=== PATIENT | male | born 1965 | race Caucasian/White ===

== ENCOUNTER 2018-02-26 16:00 | Observation (INO) ==
[2018-02-26] MEDS ORDERED: SALINE FLUSH 10ml SYRINGE IVF PRN (16:06)
[2018-02-26] MEDS ORDERED: NS 1,000 ML IV ONE ×2 (16:06→17:37)
--- NOTE | 2018-02-26 16:14 | Emergency Department Report ---
Overdose HPI - General Stated Complaint: SYNCOPAL EPISODE,ETOH INTOXICATION Source: patient, EMS, RN notes reviewed, old records reviewed Mode of arrival: EMS Limitations: altered mental status - History of Present Illness HPI Narrative: 53yo man presented to the ER for evaluation of overdose. Pt told EMS that he took 80mg zyprexa and "some alcohol" today prior to heading to [facility] to check in for rehab. Pt is prescribed zyprexa, but does not take this much generally. Unclear how much he normally drinks or how much he drank today. En route to [facility], pt passed out in the car that his friends were driving. The friends called EMS; pt was transported to the ER for further evaluation. MD complaint: other (Unknown intent) Onset (ago): hour(s) Intent: unwilling to say How Overdose Was Discovered: family/friend present at time Context: Intentional Overdose: relationship problems, financial issues, drug/ ETOH problems Associated symptoms: depression Treatments Prior to Arrival: IV fluids - Related Data Home Medications Medication Instructions Recorded Confirmed No known Home medications [No home 02/26/18 02/26/18 meds] Allergies Allergy/AdvReac Type Severity Reaction Status Date / Time No Known Allergies Allergy Verified 02/26/18 16:15 Review of Systems Limitations: ROS unobtainable due to patient's medical condition PENDING SALE TO [facility] Patient Stated Medical History Bipolar Disorder Yes Physical Exam - Limitations Limitations: altered mental status - General General appearance: in no apparent distress, lethargic, obese - Head Head exam: atraumatic, normocephalic, normal inspection - Eye Eye exam: Present: normal appearance, PERRL, EOMI, miosis. Absent: scleral icterus - ENT ENT exam: Present: normal exam, normal oropharynx, mucous membranes moist, normal external ear exam - Neck Neck exam: Present: normal inspection, full ROM, trachea midline. Absent: tenderness, lymphadenopathy - Chest Chest inspection: Present: normal inspection, symmetric chest wall rise. Absent : tenderness, rash - Respiratory Respiratory exam: Present: normal lung sounds bilaterally. Absent: respiratory distress, wheezes, stridor, prolonged expiratory phase, crackles - Cardiovascular Cardiovascular exam: Present: regular rate, normal rhythm, normal heart sounds. Absent: rubs, gallop, clicks - Abdominal Exam Abdominal exam: Present: soft, normal bowel sounds. Absent: distention, tenderness, guarding, rebound, rigidity - Extremities Exam Extremities exam: Present: normal inspection, full ROM, normal capillary refill. Absent: tenderness, pedal edema - Skin Skin exam: Present: warm, dry, intact. Absent: rash - Expanded Neurological Exam Coma scale eye opening: to voice Coma scale motor response: localizes to pain Coma scale verbal response: confused Coma scale total: 12 - Psychiatric Psychiatric exam: Present: flat affect Course - Consultations Consultation #1: Hospitalist: Time: 17:30 Vital Signs Temperature 97.8 F 02/26/18 16:00 Pulse Rate 94 02/26/18 16:00 Respiratory Rate 14 02/26/18 16:00 Blood Pressure 139/77 02/26/18 16:00 Pulse Oximetry 94 02/26/18 16:00 Temperature 97.8 F 02/26/18 16:00 Pulse Rate 78 02/26/18 17:30 Respiratory Rate 14 02/26/18 16:00 Blood Pressure 108/56 02/26/18 17:30 Pulse Oximetry 99 02/26/18 17:30 Overdose - MDM Narrative Medical decision making narrative: Pt still somnolent, presumably due to zyprexa and EtOH overdose of uncertain intent. Have not been able to obtain UA/UDS 2/2 pt combativeness and pt crush in the ER. Discussed obs admission with hospitalist; will admit to CCU for overnight obs and further dispo in the AM. Pt has been stable throughout ER stay , but requiring supplemental O2 to maintain SaO2. - Differential Diagnosis Likely: suicide attempt by multiple drug overdose, poisoning by opiate or related narcotic, drug overdose, accidental drug ingestion - Medical Records Attestation: I reviewed the patient's medical records. - Lab Data Attestation: I reviewed the patient's lab results. Result diagrams: 02/26/18 16:36 02/26/18 16:36 Lab Results 02/26/18 02/26/18 Range/Units 16:36 16:36 WBC 6.5 (4.5-11.0) T/MM3 RBC 4.45 L (4.50-5.90) M/MM3 Hgb 15.5 (13.5-17.5) GM/DL Hct 45.4 (41-53) % MCV 102.0 H (80-100) UM3 MCH 34.8 H (26-34) UUG MCHC 34.1 (31-37) GM/DL RDW Std Deviation 53.7 H (36.9-50.2) FL Plt Count 318 (130-400) T/MM3 MPV 10.7 (9.4-12.4) UM3 Immature Gran % (Auto) 0.6 H (0.0-0.5) % Neut % (Auto) 46.4 (33-66) % Lymph % (Auto) 45.7 H (23-45) % [place] % (Auto) 4.8 (0-9.0) % Eos % (Auto) 0.6 (0-4) % Baso % (Auto) 1.9 (0-2) % Neut # (Auto) 3.0 (1.8-7.7) T/MM3 Lymph # (Auto) 3.0 (1-4.8) T/MM3 [place] # (Auto) 0.3 (0-0.8) T/MM3 Eos # (Auto) 0.0 (0-0.5) T/MM3 Baso # (Auto) 0.1 (0-0.2) T/MM3 Abs Immat Gran (auto) 0.04 H (0.00-0.03) T/MM3 Turbidity < 20 (0-20) Sodium 155 H (134-144) MEQ/L Potassium 3.9 (3.6-5) MEQ/L Chloride 113 H (98-107) MEQ/L Carbon Dioxide 25 (22-30) MEQ/L Anion Gap 17 H (5-15) meq/L BUN 13.0 (9-20) MG/DL Creatinine 0.7 L (0.8-1.5) mg/dL GFR Calculation 119 BUN/Creatinine Ratio 19 (6-26) RATIO Glucose 81 (75-110) MG/DL Calculated Osmolality 296 H (261-280) MOSM/KG Calcium 8.6 (8.4-10.2) MG/DL Total Bilirubin 0.20 (0.20-1.30) MG/DL Icterus Index < 2 (0-7) AST 65 H (17-59) U/L ALT 81 H (1-50) U/L Alkaline Phosphatase 65 (38-126) U/L Total Protein 7.3 (6.3-8.2) g/dL Albumin 4.5 (3.5-5.0) g/dL Globulin 2.8 (2.4-3.6) G/DL Albumin/Globulin Ratio 1.6 (1.1-2.2) RATIO TSH 3.21 (0.47-4.68) mIU/L Specimen Hemolysis < 15 (0-25) Salicylates < 1.0 L (2-20) MG/DL Acetaminophen < 10 L (10-30) UG/ML Alcohol, Quantitative 350 (<10) mg/dL - Radiology Data Attestation: I reviewed the patient's radiology results. CXR: IMPRESSION: No acute cardiopulmonary abnormalities demonstrated. - EKG Data EKG #1 EKG attestation: Yes: I reviewed and interpreted this EKG. EKG shows normal: sinus rhythm (Short DE), axis, intervals, ST-T waves Rate: normal [place]/QRS: wide QRS complex (WPW) When compared to previous EKG there are: previous EKG unavailable Disposition Clinical Impression: Alcoholic intoxication Qualifiers: Complication of substance-induced condition: uncomplicated Qualified Code(s): F10.920 - Alcohol use, unspecified with intoxication, uncomplicated Poisoning by Zyprexa Qualifiers: Encounter type: initial encounter Injury intent: undetermined intent Qualified Code(s): T43.594A - Poisoning by other antipsychotics and neuroleptics, undetermined, initial encounter Disposition: 02 To [facility] Print Language: [place] Condition: Stable Prescriptions: No Action No known Home medications [No home meds] 0 #0 misc Time of Disposition: 17:53 - Seen By: physician
--- NOTE | 2018-02-26 16:31 | XRay Report ---
EXAM: XR chest 1V LOCATION OF DICTATION: [facility] HISTORY: Syncope COMPARISON: No prior studies available for comparison. FINDINGS: The heart size is normal. The mediastinal configuration is within normal limits. There are no consolidating opacities or pleural effusions. There is no pneumothorax. The osseous structures are within normal limits for the patient's age. IMPRESSION: No acute cardiopulmonary abnormalities demonstrated. .
--- OUTSIDE RECORDS SUMMARY | 2018-02-26 16:46 | External Medical Summary ---
:1965 Author Organization [employer] Care Team Providers Name Role Phone Zafar Wilder Provider Role Unavailable Allergies No Known Allergies Problems Problem Type Condition ICD-9 Code Onset Dates Condition Status Problem RAD (reactive airway disease) 493.90 Active Problem Foot pain 729.5 Active Problem Lumbar pain 724.2 Active Problem Lumbosacral radiculopathy due to 722.52 Active degenerative joint disease of spine Medications Medication Code System Code Instructions Start Date End Date Status Dosage [facility] 84485-439 7.5-325 MG Orally Jul 15, 1 tablet as 1-30 every 6 hrs 2013 needed Results No Known Results Summary Purpose e[employer] Submission
--- OUTSIDE RECORDS SUMMARY | 2018-02-26 16:46 | External Medical Summary ---
:1965 Author Organization [facility] Address [address] [place] [address] Care Team Providers Name Role Phone Zafar Wilder Unavailable Unavailable PROBLEMS Type Condition ICD9-CM Code [id number] Onset Condition SNOMED Code Code Dates Status Problem Lumbar pain 724.2 Active 955206276 Problem RAD (reactive 493.90 Active [id number] airway disease) Problem Foot pain 729.5 Active 60596757 Problem Lumbosacral 722.52 Active [id number] radiculopathy due to degenerative joint disease of spine ALLERGIES Unknown Allergies SOCIAL HISTORY No smoking Hx information available PLAN OF CARE VITAL SIGNS MEDICATIONS Unknown Medications RESULTS No Results PROCEDURES No Known procedures IMMUNIZATIONS No Known Immunizations
--- OUTSIDE RECORDS SUMMARY | 2018-02-26 16:46 | External Medical Summary ---
:1965 Author Organization [employer] Care Team Providers Name Role Phone Zafar Wilder Provider Role Unavailable Allergies No Known Allergies Problems Problem Type Condition ICD-9 Code Onset Dates Condition Status Problem Foot pain 729.5 Active Problem Lumbosacral radiculopathy due to 722.52 Active degenerative joint disease of spine Problem RAD (reactive airway disease) 493.90 Active Medications Medication Code System Code Instructions Start Date End Date Status Dosage [facility] 21891-623 7.5-325 MG Orally Oct 15, 1 tablet as 1-30 every 6 hrs 2013 needed Results No Known Results Summary Purpose [employer] Submission
--- OUTSIDE RECORDS SUMMARY | 2018-02-26 16:46 | External Medical Summary ---
:1965 Author Organization [employer] Care Team Providers Name Role Phone Eben Mckenna Provider Role Unavailable Allergies, Adverse Reactions, Alerts Substance Reaction Event Type N.K.D.A. Info Not Available Non Drug Allergy Problems Problem Type Condition ICD-9 Code Onset Dates Condition Status Problem RAD (reactive airway disease) 493.90 Active Problem Foot pain 729.5 Active Problem Lumbar pain 724.2 Active Problem Lumbosacral radiculopathy due to 722.52 Active degenerative joint disease of spine Assessment Contusion of shoulder, left 923.00 Active Medications Medication Code System Code Instructions Start Date End Date Status Dosage PredniSONE [facility] 90427-067 10 MG Orally Once May 22 po QD x 4 7-20 a day 2014 days, then 3 po QD x 4 days, then 2 po QD x 4 days, then po QD x 4 days, then D/C.1 Simvastatin [facility] 26767-855 20 MG Orally Once Sept 17, 1 tablet in 4-10 a day 2013 [place] [address] 7.5-325 MG Orally Oct 15, 1 tablet as 1-30 every 6 hrs 2013 needed Procedures Procedure Coding System Code Date OFFICE VISITEST PT CPT-4 61337 May 22, 2015 SHOULDER 2 VIEW CPT-4 53036 May 22, 2015 Vital Signs Date/Time: May 22, 2015 Blood Pressure Systolic 191 mm Hg Height 68.5 in Weight 156.0 lbs BMI 23.37 Index Cardiac Monitoring Heart Rate 78 /min Temperature 98.3 F Blood Pressure Diastolic 85 mm Hg Results Name Result Date Reference Range Unit Abnormality Flag X ray : Shoulder, left 2 views Summary Purpose eClinicalWorks Submission
--- OUTSIDE RECORDS SUMMARY | 2018-02-26 16:46 | External Medical Summary ---
:1965 Author Organization [employer] Care Team Providers Name Role Phone Zafar Wilder Provider Role Unavailable Allergies No Known Allergies Problems Problem Type Condition Code Onset Dates Condition Status Problem RAD (reactive airway disease) 493.90 Active Problem Foot pain 729.5 Active Problem Lumbar pain 724.2 Active Problem Lumbosacral radiculopathy due to 722.52 Active degenerative joint disease of spine Medications Medication Code System Code Instructions Start Date End Date Status Dosage [facility] 60723-125 7.5-325 MG Orally Aug 13, 1 tablet as 1-30 every 6 hrs 2013 needed Results No Known Results Summary Purpose [employer]Works Submission
--- OUTSIDE RECORDS SUMMARY | 2018-02-26 16:46 | External Medical Summary ---
:1965 Author Organization [facility] [place] Address [address] [place] [address] Care Team Providers Name Role Phone Zafar Wilder Unavailable Unavailable PROBLEMS Type Condition ICD9-CM Code HWL45-DR Code Onset Condition SNOMED Code Dates Status Problem DDD M51.37 Active 40192408 (degenerative disc disease), lumbosacral Problem Gastritis, K29.70 Active 6826694 presence of bleeding unspecified, unspecified chronicity, unspecified gastritis type Problem Hepatitis K75.9 Active 941135487 Problem RAD (reactive 493.90 Active 423091760324 airway disease) Problem Foot pain 729.5 Active 69545568 Problem Depression F32.9 Active 02314741 Problem Lumbar pain 724.2 Active 923217576 ALLERGIES No Information ENCOUNTERS Encounter Location Date Diagnosis [address] Jan, Physicians TARA KALSKAG, [address] Jan, Low back pain M54.5 and Physicians LAWRENCE JEONG [address] Depression F32.[address] Jan, Physicians TARA KALSKAG, [address] Jan, Depression F32.9 ; Physicians [place] JEONG [address] Gastritis, presence of bleeding unspecified, unspecified chronicity, unspecified gastritis type K29.70 ; DDD (degenerative disc disease), lumbosacral M51.37 and Degenerative arthritis of knee M17.[address] Dec, Nausea R11.0 ; Physicians [place] JEONG [address] Non-intractable vomiting without nausea, unspecified vomiting type R11.11 and Gastritis, presence of bleeding unspecified, unspecified chronicity, unspecified gastritis type K29.[address] Dec, Low back pain M54.5 Physicians LAWRENCE JEONG212 [facility] [address] Nov, Hyperlipidemia, unspecified Physicians LAWRENCE JEONG212 E78.5 ; Hepatitis K75.9 and Low back pain M54.5 [facility] [address] Nov, Low back pain M54.5 Physicians [place]WR[place] JEONG212 [facility] [address] Nov, Nausea R11.0 Physicians [place]WR[place] JEONG212 [facility] [address] Nov, Other intervertebral disc Physicians LAWRENCE JEONG degeneration, lumbosacral region M51.37 [facility] [address] Oct, Depression F32.9 and DDD Physicians LAWRENCE JEONG (degenerative disc disease), lumbosacral M51.37 [facility] [address] Oct, Depression F32.9 Physicians [place]WR[place] JEONG212 [facility] [address] Sep, Physicians LAWRENCE JEONG212 [facility] [address] Sep, Other intervertebral disc Physicians LAWRENCE JEONG degeneration, lumbosacral region M51.37 and Other hyperlipidemia E78.4 [facility] [address] Sep, Physicians LAWR[place] JEONG212 [facility] [address] Aug, Physicians LAWRENCE JEONG [facility] [address] Jul, Physicians LAWRENCE JEONG [facility] [address] Jun, Physicians LAWRENCE JEONG [facility] [address] Jun, DDD (degenerative disc Physicians LAWR[facility] JEONG disease), lumbosacral M51.37 [facility] [address] May, Physicians LAWRENCE JEONG [facility] [address] May, DDD (degenerative disc Physicians LAWRENCE JEONG disease), lumbosacral M51.37 [facility] [address] Apr, Lumbosacral radiculopathy Center MANUEL [place]WRENCE M54.17 [place] [address] vertebral joint at L5-S1 level of lumbosacral spine S33.101A [facility] [address] Apr, Other intervertebral disc Physicians [place] JEONG [address] degeneration, lumbosacral region M51.37 ; COPD (chronic obstructive pulmonary disease) J44.9 ; Osteoarthritis of both knees M17.0 ; Hyperlipidemia, unspecified E78.5 and Family hx of colon cancer Z80.0 [facility] [address] Apr, DDD (degenerative disc Physicians [place] JEONG [address] disease), lumbosacral M51.37 [facility] [address] Mar, DDD (degenerative disc Phys[facility] [place] JEONG 45194 disease), lumbosacral M51.37 [facility] [address] Mar, Physicians LAWRENCE JEONG [address] [facility] [address] February, Physicians LAWRENCE JEONG [address] [facility] [address] Nov, Physicians LAWRENCE JEONG [address] [facility] [address] Oct, Physicians [place]WR[facility] JEONG [address] [facility] [address] Sep, Physicians LAWR[facility] JEONG [address] [facility] [address] Sep, Physicians LAWRENCE JEONG [address] [facility] [address] Aug, Physicians LAWRENCE JEONG [address] [facility] [address] Jul, Physicians LAWRENCE JEONG [facility] [address] Jun, Physicians LAWRENCE JEONG212 [facility] [address] Jun, Physicians LAWRENCE JEONG [facility] [address] May, Physicians LAWRENCE JEONG [facility] [address] May, Physicians LAWRENCE JEONG [facility] [address] Apr, Physicians LAWRENCE JEONG [facility] [address] Mar, Physicians LAWRENCE JEONG [address] [facility] [address] Mar, Physicians LAWR[place] JEONG [address] [facility] [address] Mar, Physicians LAWRENCE JEONG [address] [facility] [address] February, Physicians LAWRENCE JEONG [address] [facility] [address] Jan, Other hyperlipidemia E78.4 Physicians LAWRENCE JEONG212 [facility] [address] Jan, Physicians LAWRENCE JEONG212 [facility] [address] Jan, Other intervertebral disc Physicians LAWRENCE JEONG212 degeneration, lumbar region M51.36 ; Other hyperlipidemia E78.4 ; COPD (chronic obstructive pulmonary disease) J44.9 ; Osteoarthritis of both knees M17.0 and High risk for colon cancer Z91.89 [facility] [address] Jan, Physicians LAWRENCE JEONG [address] [facility] [address] Dec, Physicians LAWRENCE JEONG212 [facility] [address] Nov, Physicians LAWRENCE JEONG212 [facility] [address] Oct, Physicians LAWRENCE JEONG212 [facility] [address] Sep, Physicians LAWRENCE JEONG [facility] [address] Aug, Physicians LAWRENCE JEONG [address] [facility] [address] Jul, Physicians LAWRENCE JEONG212 [facility] [address] Jun, Physicians LAWRENCE JEONG [facility] [address] May, Physicians LAWRENCE JEONG212 [facility] [address] May, Physicians LAWRENCE JEONG [facility] [address] May, Shoulder pain 719.41 Physicians LAWRENCE EJONG [facility] [address] Apr, Physicians LAWRENCE JEONG [facility] [address] Apr, Physicians LAWRENCE JEONG212 [facility] [address] Apr, Shoulder pain 719.41 and Physicians LAWRENCE JEONG Foreign body 959.9 [facility] [address] Apr, Contusion of shoulder, left Physicians LAWRENCE JEONG 923.00 [facility] [address] Apr, Physicians LAWRENCE JEONG [address] [facility] [address] Mar, Physicians LAWRENCE JEONG212 [facility] [address] Mar, [facility] [address] [facility] [address] Mar, Physicians LAWRENCE JEONG [address] [facility] [address] Mar, Lumbar pain 724.2 Physicians LAWRENCE JEONG212 [facility] [address] Mar, Physicians LAWRENCE JEONG [address] [facility] [address] Mar, Back pain 724.5 Physicians LAWRENCE JEONG[address] [place] [address] [address] February, Physicians LAWRENCE JEONG212 [facility] [address] February, Physicians LAWRENCE JEONG [address] [facility] [address] Jan, Physicians LAWRENCE JEONG212 [facility] [address] Dec, Physicians LAWRENCE JEONG [address] [facility] [address] Nov, Physicians LAWR[facility] JEONG [address] [facility] [address] Oct, Bronchitis 490 ; RAD Physicians LAWRENCE JEONG (reactive airway disease) 493.90 and Serous otitis media 381.4 [facility] [address] Oct, Physicians LAWRENCE JEONG212 [facility] [address] Oct, Physicians LAWRENCE JEONG212 [facility] [address] Oct, Physicians LAWRENCE JEONG212 [facility] [address] Aug, Physicians LAWRENCE JEONG [facility] [address] Jul, Physicians LAWRENCE JEONG [facility] [address] 17 Jun, 2014 Hyperlipidemia 272.4 Physicians LAWRENCE JEONG [facility] [address] 15 Jun, 2014 Physicians LAWRENCE JEONG212 [facility] [address] Jun, Arthritis of knee 716.96 Physicians LAWRENCE JEONG and Hypertension 401.9 [facility] [address] May, Allergic dermatitis 692.9 Physicians LAWRENCE JEONG212 [facility] [address] February, Physicians LAWRENCE JEONG [facility] [address] Jan, Physicians LAWRENCE JEONG212 [facility] [address] Jan, Plantar fasciitis 728.71 Physicians LAWRENCE JEONG212 [facility] [address] Jan, Physicians LAWRENCE JEONG212 [facility] [address] Dec, Physicians LAWRENCE JEONG212 [facility] [address] Nov, Physicians LAWRENCE JEONG212 [facility] [address] Nov, Physicians LAWRENCE JEONG212 [facility] [address] Nov, Plantar fasciitis 728.71 Physicians LAWRENCE JEONG212 [facility] [address] Oct, Physicians LAWRENCE JEONG212 [facility] [address] Aug, Physicians LAWRENCE JEONG [facility] [address] Aug, Physicians LAWRENCE JEONG212 [facility] [address] Aug, Physicians [facility] JE[facility] [address] Aug, Lumbosacral radiculopathy Physicians LAWRENCE JEONG due to degenerative joint disease of spine 722.52 [facility] [address] Apr, Physicians [facility] JEONG [facility] [address] Mar, Physicians [place] JEONG [address] [facility] [address] February, Lumbosacral radiculopathy Physicians LAWRENCE JEONG [address] due to degenerative joint disease of spine 722.52 and Foot pain 729.5 [facility] [address] February, [facility] [address] [facility] [address] February, Physicians LAWRENCE JEONG [address] [facility] [address] February, [facility] [address] [facility] [address] February, [facility] [address] [facility] [address] February, [facility] [address] [facility] [address] February, Lumbosacral radiculopathy Physicians [place] JEONG [address] due to degenerative joint disease of spine 722.52 [facility] [address] Jan, [facility] [address] [facility] [address] Jan, Physicians LAWRENCE JEONG [address] [facility] [address] Jan, [facility] [address] [facility] [address] Jan, Physicians [place]WR[place] JEONG [address] [facility] [address] Jan, Lumbosacral radiculopathy Physicians LAWR[place] JEONG [address] due to degenerative joint disease of spine 722.52 [facility] [address] Dec, Physicians [place]WR[place] JEONG [address] [facility] [address] Dec, Physicians LAWRENCE JEONG [facility] [address] Dec, Lumbosacral radiculopathy Physicians [place]WR[place] JEONG [address] due to degenerative joint disease of spine 722.52 [facility] [address] Aug, Physicians [place]WR[place] JEONG [address] [facility] [address] Jun, Physicians LAWRENCE JEONG [address] [facility] [address] [facility] February, Physicians LAWRENCE JEONG [address] [facility] [address] Jun, Physicians LAWRENCE JEONG [address] [facility] [address] February, Physicians LAWRENCE JEONG [address] [facility] [address] [facility] Jan, Physicians LAWRENCE JEONG [address] [facility] [address] [facility] Aug, Physicians LAWRENCE JEONG [address] [facility] [address] Jun, Physicians LAWR[place] JEONG [address] IMMUNIZATIONS No Known Immunizations SOCIAL HISTORY Never Assessed REASON FOR VISIT Patients Daughter came in PLAN OF CARE VITAL SIGNS MEDICATIONS Unknown Medications RESULTS No Results PROCEDURES No Known procedures INSTRUCTIONS MEDICATIONS ADMINISTERED No Known Medications MEDICAL (GENERAL) HISTORY Type Description Date Surgical History knee surgery ARTHROSCOPY LEFT Surgical History rt arm surgery Surgical History KNEE SURG ON THE RT WHICH WAS AN OPEN SURG
--- OUTSIDE RECORDS SUMMARY | 2018-02-26 16:46 | External Medical Summary ---
:1965 Author Organization [employer] Care Team Providers Name Role Phone Eben Somers Provider Role Unavailable Allergies No Known Allergies Problems Problem Type Condition ICD-9 Code Onset Dates Condition Status Problem RAD (reactive airway disease) 493.90 Active Problem Foot pain 729.5 Active Problem Lumbar pain 724.2 Active Problem Lumbosacral radiculopathy due to 722.52 Active degenerative joint disease of spine Assessment Shoulder pain 719.41 Active Medications No Known Medications Results No Known Results Summary Purpose [employer] Submission
--- OUTSIDE RECORDS SUMMARY | 2018-02-26 16:47 | External Medical Summary ---
:1965 Author Organization [facility] [place] Address [address] [place] [address] Care Team Providers Name Role Phone Zafar Wilder Unavailable Unavailable PROBLEMS Type Condition ICD9-CM Code WHM26-OE Code Onset Condition SNOMED Code Dates Status Problem Lumbar pain 724.2 Active 552021210 Problem RAD (reactive 493.90 Active 423733031681 airway disease) Problem Foot pain 729.5 Active 05177390 Problem DDD M51.37 Active 54427553 (degenerative disc disease), lumbosacral ALLERGIES No Information SOCIAL HISTORY Never Assessed PLAN OF CARE VITAL SIGNS MEDICATIONS Medication Instructions Dosage Frequency Start End Date Duration Status Date [place] 7.5-325 Orally every 6 1 tablet 6h 29 Jun, 30 days Active MG hrs as needed 2016 RESULTS No Results PROCEDURES No Known procedures IMMUNIZATIONS No Known Immunizations MEDICAL (GENERAL) HISTORY Type Description Date Surgical History knee surgery ARTHROSCOPY LEFT Surgical History rt arm surgery Surgical History KNEE SURG ON THE RT WHICH WAS AN OPEN SURG
--- OUTSIDE RECORDS SUMMARY | 2018-02-26 16:47 | External Medical Summary ---
:1965 Author Organization [facility] Address [address] [place] [address] Care Team Providers Name Role Phone Zafar Wilder Unavailable Unavailable PROBLEMS Type Condition ICD9-CM Code RBK80-UP Code Onset Condition SNOMED Code Dates Status Problem Lumbar pain 724.2 Active 379192468 Problem RAD (reactive 493.90 Active 057524507488 airway disease) Problem Foot pain 729.5 Active 60139847 Problem DDD M51.37 Active 16942289 (degenerative disc disease), lumbosacral ALLERGIES Unknown Allergies SOCIAL HISTORY No smoking Hx information available PLAN OF CARE VITAL SIGNS MEDICATIONS Medication Instructions Dosage Frequency Start End Date Duration Status Date [place] 7.5-325 Orally every 6 1 tablet 6h 15 Jul, 30 days Active MG hrs as needed 2013 RESULTS No Results PROCEDURES No Known procedures IMMUNIZATIONS No Known Immunizations
--- OUTSIDE RECORDS SUMMARY | 2018-02-26 16:47 | External Medical Summary ---
[...] Instructions Start Date End Date Status Dosage [facility] 57425-779 7.5-325 MG Orally Jul 15, 1 tablet as 1-30 every 6 hrs 2013 needed Results No Known Results Summary Purpose [employer] Submission
--- OUTSIDE RECORDS SUMMARY | 2018-02-26 16:47 | External Medical Summary ---
:1965 Author Organization [employer] Care Team Providers Name Role Phone FebruaryWali Provider Role Unavailable Allergies No Known Allergies Problems Problem Type Condition Code Onset Dates Condition Status Problem RAD (reactive airway disease) 493.90 Active Problem Foot pain 729.5 Active Problem Lumbar pain 724.2 Active Problem Lumbosacral radiculopathy due to 722.52 Active degenerative joint disease of spine Medications Medication Code System Code Instructions Start Date End Date Status Dosage Cloudcroft [facility] [address] 5-325 MG PO EVERY February 17, 1 TABLET -01 6 HRS 2015 Results No Known Results Summary Purpose [employer] Submission
--- OUTSIDE RECORDS SUMMARY | 2018-02-26 16:47 | External Medical Summary ---
:1965 Author Organization [facility] Address [address] [place] [address] Care Team Providers Name Role Phone Zafar Wilder Unavailable Unavailable PROBLEMS Type Condition ICD9-CM Code [id number] Code Onset Condition SNOMED Code Dates Status Problem Lumbar pain 724.2 Active 219397438 Problem RAD (reactive 493.90 Active 539058303178 airway disease) Problem Foot pain 729.5 Active 44804186 Problem DDD M51.37 Active 23266595 (degenerative disc disease), lumbosacral ALLERGIES Unknown Allergies SOCIAL HISTORY No smoking Hx information available PLAN OF CARE VITAL SIGNS MEDICATIONS Medication Instructions Dosage Frequency Start Date End Date Duration Status Lipitor 20 mg Orally Once a day 1 tablet 24h May, day(s) Active 2016 RESULTS No Results PROCEDURES No Known procedures IMMUNIZATIONS No Known Immunizations
--- OUTSIDE RECORDS SUMMARY | 2018-02-26 16:47 | External Medical Summary ---
[...] Date End Date Status Dosage [facility] 63228-163 7.5-325 MG Orally Oct 15, 1 tablet as 1-30 every 6 hrs 2013 needed Results No Known Results Summary Purpose [employer]Works Submission
--- OUTSIDE RECORDS SUMMARY | 2018-02-26 16:47 | External Medical Summary ---
[...] Active degenerative joint disease of spine Assessment Other hyperlipidemia E78.4 Active Medications Medication Code System Code Instructions Start Date End Date Status Dosage Simvastatin [facility] [address] 40 MG Orally Once February 21, 1 TABLET 5-10 a day 2015 Results No Known Results Summary Purpose [facility] Submission
--- OUTSIDE RECORDS SUMMARY | 2018-02-26 16:47 | External Medical Summary ---
:1965 Author Organization [employer] Care Team Providers Name Role Phone Gustavo Villasenor Provider Role Unavailable Allergies, Adverse Reactions, Alerts Substance Reaction Event Type N.K.D.A. Info Not Available Non Drug Allergy Problems Problem Type Condition Code Onset Dates Condition Status Problem Foot pain 729.5 Active Problem Lumbosacral radiculopathy due to 722.52 Active degenerative joint disease of spine Problem RAD (reactive airway disease) 493.90 Active Assessment Back pain 724.5 Active Medications Medication Code System Code Instructions Start Date End Date Status Dosage [place] [facility] [address] 7.5-325 MG Orally Oct 15, 1 tablet as 1-30 every 6 hrs 2013 needed Simvastatin [facility] 239[address]-272 20 MG Orally Once Sept 17, 1 tablet in 4-10 a day 2014 the evening Procedures Procedure Coding System Code Date Administration Fee 18yrs and up 1st injection CPT-4 18200 March 30, 2015 Celestone CPT-4 J0702 March 30, 2015 Depo Medrol 80mg CPT-4 J1040 March 30, 2015 OFFICE VISITEST PT CPT-4 37352 March 30, 2015 Administration Fee /THER/PROPH/DIAG INJ, SC/IM CPT-4 94207 March 30, 2015 Vital Signs Date/Time: March 30, 2015 Blood Pressure Systolic 151 mm Hg Height 68.5 in Weight 168.4 lbs Oximetry 97 % Cardiac Monitoring Heart Rate 98 /min Temperature 99.4 F Blood Pressure Diastolic 84 mm Hg BMI 25.23 Index Results No Known Results Summary Purpose [employer] Submission
--- OUTSIDE RECORDS SUMMARY | 2018-02-26 16:47 | External Medical Summary ---
:1965 Author Organization [employer] Care Team Providers Name Role Phone Gustavo Villasenor Provider Role Unavailable Allergies No Known Allergies Problems Problem Type Condition Code Onset Dates Condition Status Problem RAD (reactive airway disease) 493.90 Active Problem Foot pain 729.5 Active Problem Lumbar pain 724.2 Active Problem Lumbosacral radiculopathy due to 722.52 Active degenerative joint disease of spine Medications Medication Code System Code Instructions Start Date End Date Status Dosage MS Contin [facility] [address] 15 MG Orally April 01 tablet -00 Every 8 hours 2014 Results No Known Results Summary Purpose [employer] Submission
--- OUTSIDE RECORDS SUMMARY | 2018-02-26 16:47 | External Medical Summary ---
:1965 Author Organization [facility] Address [address] [place] [address] Care Team Providers Name Role Phone Zafar Wilder Unavailable Unavailable PROBLEMS Type Condition ICD9-CM Code UKV46-XS Code Onset Condition SNOMED Code Dates Status Problem Lumbar pain 724.2 Active 606041929 Problem RAD (reactive 493.90 Active 420210187698 airway disease) Problem Foot pain 729.5 Active 38955533 Problem DDD M51.37 Active 80159976 (degenerative disc disease), lumbosacral ALLERGIES Unknown Allergies SOCIAL HISTORY No smoking Hx information available PLAN OF CARE VITAL SIGNS MEDICATIONS Medication Instructions Dosage Frequency Start Date End Date Duration Status [place] 5-325 MG PO EVERY 6 HRS 1 TABLET 6h Jan, 30 days Active 2016 RESULTS No Results PROCEDURES No Known procedures IMMUNIZATIONS No Known Immunizations
--- OUTSIDE RECORDS SUMMARY | 2018-02-26 16:47 | External Medical Summary ---
[...] Active degenerative joint disease of spine Medications No Known Medications Results No Known Results Summary Purpose [employer]Works Submission
--- OUTSIDE RECORDS SUMMARY | 2018-02-26 16:47 | External Medical Summary ---
:1965 Author Organization [employer] Care Team Providers Name Role Phone Arnold Molina Provider Role Unavailable Allergies No Known Allergies Problems Problem Type Condition Code Onset Dates Condition Status Problem RAD (reactive airway disease) 493.90 Active Problem Foot pain 729.5 Active Problem Lumbar pain 724.2 Active Problem Lumbosacral radiculopathy due to 722.52 Active degenerative joint disease of spine Medications Medication Code System Code Instructions Start Date End Date Status Dosage [place] [facility] [address]-311 5-325 MG Orally February 17 tablet as 3-01 EVERY 6 HRS 2015 needed Results No Known Results Summary Purpose [employer] Submission
--- OUTSIDE RECORDS SUMMARY | 2018-02-26 16:47 | External Medical Summary ---
:[address] [facility] Address [address] [place] [address] Care Team Providers Name Role Phone Zafar Wilder Unavailable Unavailable PROBLEMS Type Condition ICD9-CM Code [id number] Code Onset Condition SNOMED Code Dates Status Problem Lumbar pain 724.2 Active 891810750 Problem RAD (reactive 493.90 Active 841411338238 airway disease) Problem Foot pain 729.5 Active 28453951 Problem DDD M51.37 Active 61165777 (degenerative disc disease), lumbosacral ALLERGIES No Information SOCIAL HISTORY Never Assessed PLAN OF CARE VITAL SIGNS MEDICATIONS Medication Instructions Dosage Frequency Start End Date Duration Status Date [place] 7.5-325 Orally every 6 1 tablet 6h Jun, 30 days Active MG hrs as needed 2016 RESULTS No Results PROCEDURES No Known procedures IMMUNIZATIONS No Known Immunizations MEDICAL (GENERAL) HISTORY Type Description Date Surgical History knee surgery ARTHROSCOPY LEFT Surgical History rt arm surgery Surgical History KNEE SURG ON THE RT WHICH WAS AN OPEN SURG
--- OUTSIDE RECORDS SUMMARY | 2018-02-26 16:47 | External Medical Summary ---
[...] Instructions Start Date End Date Status Dosage [facility] 03685-554 7.5-325 MG Orally Jul 15, 1 tablet as 1-30 every 6 hrs 2013 needed Results No Known Results Summary Purpose eClinicalWorks Submission
--- OUTSIDE RECORDS SUMMARY | 2018-02-26 16:47 | External Medical Summary ---
:1965 Author Organization [facility] Address [address] [place] [address] Care Team Providers Name Role Phone Stan Warner Unavailable Unavailable PROBLEMS Type Condition ICD9-CM Code [id number] Code Onset Condition SNOMED Code Dates Status Problem Lumbar pain 724.2 Active 397606239 Problem RAD (reactive 493.90 Active 538163722177 airway disease) Problem Foot pain 729.5 Active 40396058 Problem DDD M51.37 Active 31723065 (degenerative disc disease), lumbosacral ALLERGIES Substance Reaction Event Type Date Status N.K.D.A. Unknown Non Drug Allergy Mar, Unknown SOCIAL HISTORY No smoking Hx information available PLAN OF CARE Activity Details Follow Up prn Reason: VITAL SIGNS Weight 178.4 lbs 2017-04-20 Height 68.5 in 2017-04-20 BMI 26.73 kg/m2 2017-04-20 Blood pressure systolic 142 mm Hg 2017-04-20 Blood pressure diastolic 94 mm Hg 2017-04-20 MEDICATIONS Medication Instructions Dosage Frequency Start End Duration Status Date Date Cyclobenzaprine HCl Orally Three 1/2 - 1 8h Mar, 10 days Active 10 MG times a day tablet as 2017 needed Meloxicam 7.5 MG Orally BID 1 tablet 12h Jan, 30 days Active 2015 Doxepin HCl 25 MG Orally Once a 1 capsule 24h Jan, 30 days Active day at bedtime 2016 [place] 7.5-325 MG Orally every 6 1 tablet 6h Jul, Active hrs as needed 2014 Simvastatin 40 MG Orally Once a 1 TABLET 24h Jan, 30 days Active day 2015 RESULTS No Results PROCEDURES Procedure Date Ordered Related Diagnosis Body Site OFFICE VISITEST PT April 20, 2017 IMMUNIZATIONS No Known Immunizations
--- OUTSIDE RECORDS SUMMARY | 2018-02-26 16:47 | External Medical Summary ---
:1965 Author Organization [facility] Address [address] [place] [address] Care Team Providers Name Role Phone Zafar Wilder Unavailable Unavailable PROBLEMS Type Condition ICD9-CM Code [id number] Code Onset Condition SNOMED Code Dates Status Problem Depression F32.9 Active 63274253 Problem Lumbar pain 724.2 Active 892881446 Problem DDD M51.37 Active 01857818 (degenerative disc disease), lumbosacral Problem RAD (reactive 493.90 Active 453690465727 airway disease) Problem Foot pain 729.5 Active 19646254 ALLERGIES No Information SOCIAL HISTORY Never Assessed PLAN OF CARE VITAL SIGNS MEDICATIONS Medication Instructions Dosage Frequency Start Date End Date Duration Status Meloxicam 7.5 MG Orally BID 1 tablet 12h 30 day(s) Active RESULTS No Results PROCEDURES No Known procedures IMMUNIZATIONS No Known Immunizations MEDICAL (GENERAL) HISTORY Type Description Date Surgical History knee surgery ARTHROSCOPY LEFT Surgical History rt arm surgery Surgical History KNEE SURG ON THE RT WHICH WAS AN OPEN SURG
--- OUTSIDE RECORDS SUMMARY | 2018-02-26 16:47 | External Medical Summary ---
[...] Instructions Start Date End Date Status Dosage [facility] 35127-595 7.5-325 MG Orally Oct 15, 1 tablet as 1-30 every 6 hrs 2013 needed Results No Known Results Summary Purpose eClinicalWorks Submission
--- OUTSIDE RECORDS SUMMARY | 2018-02-26 16:47 | External Medical Summary ---
[...] Date End Date Status Dosage [facility] 89661-210 7.5-325 MG Orally Jul 15, 1 tablet as 1-30 every 6 hrs 2013 needed Results No Known Results Summary Purpose eClinicalWorks Submission
--- OUTSIDE RECORDS SUMMARY | 2018-02-26 16:47 | External Medical Summary ---
[...] Instructions Start Date End Date Status Dosage [facility] 70293-486 7.5-325 MG Orally Aug 13, 1 tablet as 1-30 every 6 hrs 2013 needed Results No Known Results Summary Purpose eClinicalWorks Submission
--- OUTSIDE RECORDS SUMMARY | 2018-02-26 16:47 | External Medical Summary ---
[...] Instructions Start Date End Date Status Dosage [facility] 88371-364 7.5-325 MG Orally Oct 15, 1 tablet as 1-30 every 6 hrs 2013 needed Results No Known Results Summary Purpose eClinicalWorks Submission
--- OUTSIDE RECORDS SUMMARY | 2018-02-26 16:47 | External Medical Summary ---
:1965 Author Organization [facility] Address [address] [place] [address] Care Team Providers Name Role Phone Zafar Wilder Unavailable Unavailable PROBLEMS Type Condition ICD9-CM Code ULX22-RL Code Onset Condition SNOMED Code Dates Status Problem Hepatitis K75.9 Active 037849146 Problem Depression F32.9 Active 66852190 Problem Foot pain 729.5 Active 69587767 Problem DDD M51.37 Active 36567435 (degenerative disc disease), lumbosacral Problem Lumbar pain 724.2 Active 137726631 Problem RAD (reactive 493.90 Active 186532757843 airway disease) ALLERGIES No Information ENCOUNTERS Encounter Location Date Diagnosis [facility] [address] [place] [address] Nov, Hyperlipidemia, unspecified Physicians [place], [place] [address] E78.5 ; Hepatitis K75.9 and Low back pain M54.5 [facility] [address] [place] [address] Nov, Low back pain M54.5 Physicians [place]ARA [place], [address] Nov, Nausea R11.0 Physicians TARA [address] [place] [address] Nov, Other intervertebral disc Physicians [place] [address] degeneration, lumbosacral region M51.37 [facility] [address] [place] [address] Oct, Depression F32.9 and DDD Physicians [place], [place] [address] (degenerative disc disease), lumbosacral M51.[address] Oct, Depression F32.9 Physicians TARA [place], [address] Sep, Physicians [place] [address] Sep, Other intervertebral disc Physicians [place] [address] degeneration, lumbosacral region M51.37 and Other hyperlipidemia E78.4 [facility] [address] Sep, Physicians [place] [address] [facility] [address] Aug, Physicians [place] [facility] [address] Jul, Physicians [place] [facility] [address] Jun, Physicians [place] [facility] [address] Jun, DDD (degenerative disc Physicians [place] disease), lumbosacral M51.37 [facility] [address] May, Physicians [place] [facility] [address] May, DDD (degenerative disc Physicians [place] disease), lumbosacral M51.37 [facility] [address] Apr, Lumbosacral radiculopathy Center [place], [place] M54.17 [place] [address] vertebral joint at L5-S1 level of lumbosacral spine S33.101A [facility] [address] Apr, Other intervertebral disc Physicians [place] [address] degeneration, lumbosacral region M51.37 ; COPD (chronic obstructive pulmonary disease) J44.9 ; Osteoarthritis of both knees M17.0 ; Hyperlipidemia, unspecified E78.5 and Family hx of colon cancer Z80.0 [facility] [address] Apr, DDD (degenerative disc Physicians [place] disease), lumbosacral M51.37 [facility] [address] Mar, DDD (degenerative disc Physicians [place] disease), lumbosacral M51.37 [facility] [address] Mar, Physicians [place] [facility] [address] February, Physicians [place] [facility] [address] Nov, Physicians [place] [facility] [address] Oct, Physicians [place] [facility] [address] Sep, Physicians [place] [address] [place] [address] [address] Sep, Physicians [place] [address] [place] [address] [address] Aug, Physicians [place] [id number] [place] [address] [address] Jul, Physicians [place] [phone] [place] [address] [address] Jun, Physicians [place] [address] [facility] [address] Jun, Physicians [place] [address] [facility] [address] May, Physicians [place] [address] [facility] [address] May, Physicians [place] [address] [facility] [address] Apr, Physicians [place] [address] [facility] [address] Mar, Physicians [place] [address] [facility] [address] Mar, Physicians LAWRENCE JEONG [address] [place] [address] [address] Mar, Physicians [place] JEONG [phone] [place] [address] [address] February, Physicians [place] JE[place] [address] [place] [address] [address] Jan, Other hyperlipidemia E78.4 Physicians [place] [address] [facility] [address] Jan, Physicians [place] [address] [facility] [address] Jan, Other intervertebral disc Physicians [place] [address] degeneration, lumbar region M51.36 ; Other hyperlipidemia E78.4 ; COPD (chronic obstructive pulmonary disease) J44.9 ; Osteoarthritis of both knees M17.0 and High risk for colon cancer Z91.89 [facility] [address] Jan, Physicians [place] [address] [facility] [address] Dec, Physicians [place] [address] [facility] [address] Nov, Physicians [place] JEONG212 [facility] [address] Oct, Physicians [place] [phone] [place] [address] [address] Sep, Physicians [place] [id number] [place] [address] [address] Aug, Physicians [place] [address] [place] [address] [address] Jul, Physicians [place] [address] [facility] [address] Jun, Physicians [place] [address] [facility] [address] May, Physicians [place] [address] [facility] [address] May, Physicians [place] [address] [place] [address] [address] May, Shoulder pain 719.41 Physicians [place] [phone] [place] [address] [address] Apr, Physicians [place] [address] [place] [address] [address] Apr, Physicians [place] [address] [facility] [address] Apr, Shoulder pain 719.41 and Physicians [place]WR[place] JEONG212 Foreign body 959.9 [facility] [address] Apr, Contusion of shoulder, left Physicians [place] [address] 923.00 [facility] [address] Apr, Physicians [place] [id number] [place] [address] [address] Mar, Physicians [place] [address] [facility] [address] Mar, [place] [address] [facility] [address] Mar, Physicians [place] [address] [facility] [address] Mar, Lumbar pain 724.2 Physicians [place] JEONG212 [facility] [address] Mar, Physicians [place] [address] [facility] [address] Mar, Back pain 724.5 Physicians [place] [address] [facility] [address] February, Physicians [place] JEONG212 [facility] [address] February, Physicians [place] JEONG212 [facility] [address] Jan, Physicians [place] JEONG212 [facility] [address] Dec, Physicians [place] JEONG212 [facility] [address] Nov, Physicians [place] JEONG212 [facility] [address] Oct, Bronchitis 490 ; RAD Physicians [place]WR[place] JEONG (reactive airway disease) 493.90 and Serous otitis media 381.4 [facility] [address] Oct, Physicians [place] JEONG212 [facility] [address] Oct, Physicians [place] JEONG212 [facility] [address] Oct, Physicians [place] JEONG212 [facility] [address] Aug, Physicians [place] JEONG212 [facility] [address] Jul, Physicians [place] JEONG212 [facility] [address] Jun, Hyperlipidemia 272.4 Physicians [place] JEONG212 [facility] [address] Jun, Physicians [place] JEONG212 [facility] [address] Jun, Arthritis of knee 716.96 Physicians LAWRENCE JEONG and Hypertension 401.9 [facility] [address] May, Allergic dermatitis 692.9 Physicians [place] JEONG212 [facility] [address] February, Physicians [place] JE[place] [facility] [address] Jan, Physicians [place]WR[place] JE[place] [facility] [address] Jan, Plantar fasciitis 728.71 Physicians [place]WR[place] JEONG [facility] [address] Jan, Physicians [place] JE[place] [facility] [address] Dec, Physicians [place]WR[place] JEONG [facility] [address] Nov, Physicians [place]WR[place] JEONG [facility] [address] Nov, Physicians [place] [address] [facility] [address] Nov, Plantar fasciitis 728.71 Physicians [place] [address] [facility] [address] Oct, Physicians [place] [address] [facility] [address] Aug, Physicians [place] [address] [facility] [address] Aug, Physicians [place] [address] [facility] [address] Aug, Physicians [place] [address] [facility] [address] Aug, Lumbosacral radiculopathy Physicians [place] [address] due to degenerative joint disease of spine 722.52 [facility] [address] Apr, Physicians [place] [address] [facility] [address] Mar, Physicians [place] [address] [facility] [address] February, Lumbosacral radiculopathy Physicians [place] [address] due to degenerative joint disease of spine 722.[address] [facility] [address] February, [place] [address] [facility] [address] February, Physicians [place] [address] [facility] [address] February, [place] [address] [facility] [address] February, Pearl [place] [address] [facility] [address] February, Pearl [place] [address] [facility] [address] February, Lumbosacral radiculopathy Physicians [place] [address] due to degenerative joint disease of spine 722.52 [facility] [address] Jan, Pearl [place] [address] [facility] [address] Jan, Physicians [place] [address] [facility] [address] Jan, [place] [address] [facility] [address] Jan, Physicians [place] [id number] [place] [address] [address] Jan, Lumbosacral radiculopathy Physicians [place] [address] due to degenerative joint disease of spine 722.52 [facility] [address] Dec, Physicians [place] [id number] [place] [address] [address] Dec, Physicians [place] [address] [facility] [address] Dec, Lumbosacral radiculopathy Physicians [place] [address] due to degenerative joint disease of spine 722.52 [facility] [address] Aug, Physicians [place] [address] [facility] [address] Jun, Physicians [place] [phone] [place] [address] [address] February, Physicians [place] [address] [place] [address] [address] Jun, Physicians [place] [phone] [place] [address] [address] February, Physicians [place] [address] [place] [address] [address] Jan, Physicians [place] [address] [place] [address] [address] Aug, Physicians [place] [address] [facility] [address] Jun, Physicians [place] [address] IMMUNIZATIONS No Known Immunizations SOCIAL HISTORY Never Assessed REASON FOR VISIT Grady refill PLAN OF CARE VITAL SIGNS MEDICATIONS Medication Instructions Dosage Frequency Start End Date Duration Status Date [place] 5-325 MG Orally every 6 1 tablet 6h 30 days Active hrs as needed RESULTS No Results PROCEDURES No Known procedures INSTRUCTIONS MEDICATIONS ADMINISTERED No Known Medications MEDICAL (GENERAL) HISTORY Type Description Date Surgical History knee surgery ARTHROSCOPY LEFT Surgical History rt arm surgery Surgical History KNEE SURG ON THE RT WHICH WAS AN OPEN SURG
--- OUTSIDE RECORDS SUMMARY | 2018-02-26 16:47 | External Medical Summary ---
[...] Medications Results No Known Results Summary Purpose eClinicalmy6sense Submission
--- OUTSIDE RECORDS SUMMARY | 2018-02-26 16:47 | External Medical Summary ---
:1965 Author Organization [facility] Address [address] [place] [address] Care Team Providers Name Role Phone Zafar Wilder Unavailable Unavailable PROBLEMS Type Condition ICD9-CM Code NLI99-KM Onset Condition SNOMED Code Code Dates Status Problem Lumbar pain 724.2 Active 762177098 Problem RAD (reactive 493.90 Active 124875249491 airway disease) Problem Foot pain 729.5 Active 73364254 Problem Lumbosacral 722.52 Active 28516324 radiculopathy due to degenerative joint disease of spine ALLERGIES Unknown Allergies SOCIAL HISTORY No smoking Hx information available PLAN OF CARE VITAL SIGNS MEDICATIONS Medication Instructions Dosage Frequency Start Date End Date Duration Status [place] 5-325 MG PO EVERY 6 HRS 1 TABLET 6h Jan, 30 days Active 2016 RESULTS No Results PROCEDURES No Known procedures IMMUNIZATIONS No Known Immunizations
--- OUTSIDE RECORDS SUMMARY | 2018-02-26 16:47 | External Medical Summary ---
[...] Instructions Start Date End Date Status Dosage [facility] [address]2356-311 7.5-325 MG Orally Oct 15, 1 tablet as 1-30 every 6 hrs 2013 needed Results No Known Results Summary Purpose eClinicalWorks Submission
--- OUTSIDE RECORDS SUMMARY | 2018-02-26 16:47 | External Medical Summary ---
:1965 Author Organization eClinicalWorks Care Team Providers Name Role Phone Zafar Wilder Provider Role Unavailable Allergies, Adverse Reactions, Alerts Substance Reaction Event Type N.K.D.A. 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, lumbar region Medications Medication Code System Code Instructions Start Date End Date Status Dosage [facility] 2001 27301-161 7.5-325 MG Orally Oct 15, 1 tablet 1-30 every 6 hrs 2013 [place] [address] 20 mg daily 1 tablet 4-10 Procedures Procedure Coding System Code Date COMP PROFILE CPT-4 65667 February 18, 2016 LIPID PROFILE CPT-4 96751 February 18, 2016 CBC CPT-4 41739 February 18, 2016 PREV MED SEREST 40 CPT-4 53091 February 18, 2016 CHEST XRAY 2 VIEW CPT-4 45196 February 18, 2016 Vital Signs Date/Time: February 18, 2016 Blood Pressure Systolic 143 mm Hg Height 68.5 in Weight 177.6 lbs Oximetry 94 % Cardiac Monitoring Heart Rate 75 /min Temperature 98.2 F Blood Pressure Diastolic 92 mm Hg BMI 26.61 Index Results Name Result Date Reference Range Unit Abnormality Flag LIPID PROFILE ----HDL-DIRECT 52 [id number] 35-55 MG/DL ----LDL-DIRECT 212 [id number] 0-99 MG/DL H ----CHOL/HDL 5.3 90392335 4.0-6.7 RATIO ----CHOLESTEROL 273 [id number] 50-200 MG/DL H ----TRIGLYCERIDE 183 [id number] 30-150 MG/DL H X ray : Chest 2 views CBC ----MCV 95.2 [id number] 80.0-94.0 FL H ----HCT 52.1 40776967 39.0-49.0 % H ----MCHC 33.8 [id number] 32.0-36.0 G/DL ----MCH 32.2 [id number] 26.0-32.0 PG H ----EO# 0.2 [id number] 0.0-0.2 X10^3/UL ----PLT 170 [id number] 130-400 X10^3 ----EO% 2.1 32105765 0.0-3.0 % ----RDW 14.3 [id number] 11.5-15.5 % ----MO# 0.8 [id number] 0.1-0.6 X10^3/UL H ----MO% 9.0 [id number] 1.7-9.3 % ----LY# 2.0 [id number] 1.2-3.4 X10^3/UL ----BA# 0.0 [id number] 0.0-0.1 X10^3/UL ----BA% 0.5 [id number] 0.0-1.0 % ----HGB 17.6 [id number] 13.8-17.0 G/DL H ----RBC 5.47 [id number] 4.50-5.70 X10^6 ----MPV 11.6 [id number] 9.0-12.1 FL ----WBC 8.7 [id number] 4.0-10.0 X10^3/UL ----NE% 65.6 [id number] 42.2-75.2 % ----NE# 5.7 [id number] 1.4-6.5 X10^3/UL ----LY% 22.6 [id number] 20.5-51.1 % COMPREHENSIVE CHEM PROFILE ----SODIUM 140 [id number] 133-145 MMOL/L ----TOTAL BILI 0.66 [id number] 0.00-1.00 MG/DL ----CHLORIDE 102 [id number] 96-108 MMOL/L ----POTASSIUM 3.6 [id number] 3.3-5.1 MMOL/L ----CALCIUM 9.3 [id number] 8.7-10.3 MG/DL ----AST/SGOT 20 [id number] 5-40 U/L ----CO2 25 [id number] 23-31 MMOL/L ----TOTAL PROTEIN 7.9 [id number] 5.9-8.4 G/DL ----eGFR If Am 125 [id number] >60 ml/min/1.73m^2 ----ALBUMIN 4.3 [id number] 3.2-5.2 G/DL ----eGFR If Non 103 [id number] >60 ml/min/1.73m^2 Am ----BUN 12 [id number] 6-20 MG/DL ----ALT/SGPT 16 [id number] 5-40 U/L ----ALK PHOS 56 [id number] 34-114 U/L ----CREATININE 0.8 [id number] 0.5-1.2 MG/DL ----GLUCOSE 100 [id number] 60-99 MG/DL H ----GLOBULIN 3.6 85307611 2.0-4.4 G/DL Summary Purpose eClinicalWorks Submission
--- OUTSIDE RECORDS SUMMARY | 2018-02-26 16:47 | External Medical Summary ---
:1965 Author Organization e[employer] Care Team Providers Name Role Phone Jesse Arnoldblank Napier Provider Role Unavailable Allergies No Known Allergies Problems Problem Type Condition ICD-9 Code Onset Dates Condition Status Problem Lumbosacral radiculopathy due to 722.52 Active degenerative joint disease of spine Problem Foot pain 729.5 Active Medications Medication Code System Code Instructions Start Date End Date Status Dosage [place] 00989-576 7.5-325 MG Orally Aug 13, Active 1 tablet as 1-30 every 6 hrs 2013 needed Results No Known Results Summary Purpose eClinicalWorks Submission
--- OUTSIDE RECORDS SUMMARY | 2018-02-26 16:47 | External Medical Summary ---
[...] Medications Results No Known Results Summary Purpose eClinicalIncentient Submission
--- OUTSIDE RECORDS SUMMARY | 2018-02-26 16:47 | External Medical Summary ---
:1965 Author Organization [facility] Address [address] [place] [address] Care Team Providers Name Role Phone Zafar Wilder Unavailable Unavailable PROBLEMS Type Condition ICD9-CM Code TAK06-PE Code Onset Condition SNOMED Code Dates Status Problem DDD M51.37 Active 29380092 (degenerative disc disease), lumbosacral Problem Gastritis, K29.70 Active 0961192 presence of bleeding unspecified, unspecified chronicity, unspecified gastritis type Problem Hepatitis K75.9 Active 945265132 Problem RAD (reactive 493.90 Active 142049994193 airway disease) Problem Foot pain 729.5 Active 13087516 Problem Depression F32.9 Active 44368131 Problem Lumbar pain 724.2 Active 945533965 ALLERGIES No Information ENCOUNTERS Encounter Location Date Diagnosis [address] Jan, [facility] [place] Jan, [facility] [place] Jan, [facility] [place], [address] Jan, Phys[facility] [place], [address] Jan, Phys[facility] [place], [address] Jan, Low back pain M54.5 and Physicians [place], [place] [address] Depression F32[address] Jan, Physicians [place], [address] Jan, Depression F32.9 ; Physicians [place], [place] [address] Gastritis, presence of bleeding unspecified, unspecified chronicity, unspecified gastritis type K29.70 ; DDD (degenerative disc disease), lumbosacral M51.37 and Degenerative arthritis of knee M17.10 [facility] [address] Dec, Nausea R11.0 ; Physicians [place] JEONG212 Non-intractable vomiting without nausea, unspecified vomiting type R11.11 and Gastritis, presence of bleeding unspecified, unspecified chronicity, unspecified gastritis type K29.70 [facility] [address] [facility] Dec, Low back pain M54.[address] [place] [address] [place] [address] [place] [address] Nov, Hyperlipidemia, unspecified Physicians [place] JEONG212 E78.5 ; Hepatitis K75.9 and Low back pain M54.5 [facility] [address] [place] [address] Nov, Low back pain M54.5 [facility] [place] [address] [place] [address] [place] [address] Nov, Nausea R11.0 [facility] [place] JEONG212 [facility] [address] [place] [address] Nov, Other intervertebral disc Physicians LAWR[place] JEONG degeneration, lumbosacral region M51.37 [facility] [address] [facility] Oct, Depression F32.9 and DDD [facility] [place] JEONG (degenerative disc disease), lumbosacral M51.37 [facility] [address] [place] [address] Oct, Depression F32.9 [facility] [place] JEONG212 [facility] [address] [facility] Sep, Physicians [place] JEONG [facility] [address] [facility] Sep, Other intervertebral disc Physicians [place]WR[place] JEONG degeneration, lumbosacral region M51.37 and Other hyperlipidemia E78.4 [facility] [address] [facility] Sep, Physicians [place]ONG [facility] [address] [place] [address] Aug, Physicians [place]WR[place] JEONG [facility] [address] [place] [address] Jul, Physicians LAWR[place] JEONG [facility] [address] Jun, Physicians [place] JEONG [facility] [address] [place] [address] Jun, DDD (degenerative disc Physicians [place]WR[place] JEONG disease), lumbosacral M51.37 [facility] [address] May, Physicians [place] [address] [facility] [address] May, DDD (degenerative disc Physicians [place]WR[place] JEONG disease), lumbosacral M51.37 [facility] [address] Apr, Lumbosacral radiculopathy [facility] [place], [place] M54.17 [place] [address] vertebral joint at L5-S1 level of lumbosacral spine S33.101A [facility] [address] Apr, Other intervertebral disc Physicians LAWRENCE JEONG212 degeneration, lumbosacral region M51.37 ; COPD (chronic obstructive pulmonary disease) J44.9 ; Osteoarthritis of both knees M17.0 ; Hyperlipidemia, unspecified E78.5 and Family hx of colon cancer Z80.0 [facility] [address] Apr, DDD (degenerative disc Physicians [place] JEONG212 disease), lumbosacral M51.37 [facility] [address] Mar, DDD (degenerative disc Physicians [place] JEONG disease), lumbosacral M51.37 [facility] [address] Mar, Physicians [place]WR[place] JEONG212 [facility] [address] February, Physicians LAWR[place] JEONG212 [facility] [address] Nov, Physicians [place] JEONG [facility] [address] Oct, Physicians [place] JEONG [facility] [address] Sep, Physicians [place] [facility] [address] Sep, Physicians [place]WR[place] JEONG [facility] [address] Aug, Physicians [place] JEONG [facility] [address] Jul, Physicians LA[place] JEONG [facility] [address] Jun, Physicians LAWR[place] JEONG [facility] [address] Jun, Physicians [place] JEONG [address] [facility] [address] May, Physicians [place] JEONG [address] [facility] [address] May, Physicians LAWR[place] JEONG [address] [facility] [address] Apr, Physicians [place]WR[place] JEONG [address] [facility] [address] Mar, Physicians [place]WR[place] JEONG [address] [facility] [address] Mar, Physicians LAWR[place] JEONG212 [facility] [address] Mar, Physicians LAWR[place] JEONG [address] [facility] [address] February, Physicians LAWR[place] JEONG212 [facility] [address] Jan, Other hyperlipidemia E78.4 Physicians LAWR[place] JEONG [id number] [place] [address] [address] Jan, Physicians [place] JEONG [address] [facility] [address] Jan, Other intervertebral disc Physicians [place] JEONG [address] degeneration, lumbar region M51.36 ; Other hyperlipidemia E78.4 ; COPD (chronic obstructive pulmonary disease) J44.9 ; Osteoarthritis of both knees M17.0 and High risk for colon cancer Z91.89 [facility] [address] Jan, Physicians [place] [address] [facility] [address] Dec, Physicians [place]WR[place] JEONG [address] [facility] [address] Nov, Physicians LAWR[place] JEONG212 [facility] [address] Oct, Physicians [place]WR[place] JEONG [address] [facility] [address] Sep, Physicians [place] JEONG212 [facility] [address] Aug, Physicians [place] JEONG [facility] [address] Jul, Physicians [place] JEONG212 [facility] [address] Jun, Physicians [place] JEONG212 [facility] [address] May, [place] [address] [place] [address] [address] May, Physicians [place] [address] [place] [address] [address] May, Shoulder pain 719.41 Physicians [place]ONG [address] [place] [address] [address] Apr, Physicians [place] [address] [place] [address] [address] Apr, Physicians [place] [address] [place] [address] [address] Apr, Shoulder pain 719.41 and Physicians [place]WR[place] JEONG212 Foreign body 959.9 [facility] [address] Apr, Contusion of shoulder, left Physicians LAWR[place] JEONG [facility] 923.00 [facility] [address] Apr, Physicians [place]WR[place] JEONG [address] [place] [address] [address] Mar, Physicians LAWRENCE JEONG [address] [place] [address] Surgery [address] Mar, [place] [address] [facility] [address] Mar, Physicians [place]WR[place] JEONG [address] [place] [address] [address] Mar, Lumbar pain 724.2 Phys[facility] [place]ONG [address] [place] [address] [address] Mar, Physicians [place]ONG [address] [place] [address] [address] Mar, Back pain 724.5 Physicians [place] JEONG [address] [place] [address] [address] February, Physicians [place]WR[place] JEONG [address] [place] [address] [address] February, Physicians [place]WR[place] JEONG [address] [place] [address] [address] Jan, Physicians [place] JEONG [address] [facility] [address] Dec, Physicians [place] [address] [facility] [address] Nov, Physicians [place] JEONG [address] [facility] [address] Oct, Bronchitis 490 ; RAD Physicians LAWRENCE JEONG (reactive airway disease) 493.90 and Serous otitis media 381.4 [facility] [address] Oct, Physicians LAWR[place] JEONG212 [facility] [address] Oct, Physicians LAWR[place] JEONG212 [facility] [address] Oct, Physicians LAWR[place] JEONG [facility] [address] Aug, Physicians LAWR[place] JEONG [facility] [address] Jul, Physicians LAWR[place] JEONG212 [facility] [address] Jun, Hyperlipidemia 272.4 Physicians [place] JEONG212 [facility] [address] Jun, Physicians LAWR[place] JEONG212 [facility] [address] Jun, Arthritis of knee 716.96 Physicians LAWRENCE JEONG and Hypertension 401.9 [facility] [address] May, Allergic dermatitis 692.9 Physicians [place] JEONG212 [facility] [address] February, Physicians LAWR[place] JEONG212 [facility] [address] Jan, Physicians LAWR[place] JEONG212 [facility] [address] Jan, Plantar fasciitis 728.71 Physicians LAWR[place] JEONG [facility] [address] Jan, Physicians LAWR[place] JEONG212 [facility] [address] Dec, Physicians [place]WR[place] JEONG [facility] [address] Nov, Physicians LAWR[place] JEONG [facility] [address] Nov, Physicians LAWRENCE JEONG212 [facility] [address] Nov, Plantar fasciitis 728.71 Physicians LAWRENCE JEONG [facility] [address] Oct, Physicians LAWR[place] JEONG [facility] [address] Aug, Physicians LAWR[place] JEONG [facility] [address] Aug, Physicians LAWR[place] JEONG [facility] [address] Aug, Physicians [place] JEONG [address] [facility] [address] Aug, Lumbosacral radiculopathy Physicians [place] JEONG [address] due to degenerative joint disease of spine 722.[address] [facility] [address] Apr, Physicians LAWR[place] JEONG [address] [facility] [address] Mar, Physicians LAWR[place] JEONG [address] [facility] [address] February, Lumbosacral radiculopathy Physicians [place] JEONG [address] due to degenerative joint disease of spine 722.52 and Foot pain 729.5 [facility] [address] February, [place] LA[place] JACKSON [address] [facility] [address] February, Physicians LAWR[place] JEONG [address] [facility] [address] February, [facility] [address] [facility] [address] February, [place] LA[place] JACKSON [address] [facility] [address] February, [facility] [address] [facility] [address] February, Lumbosacral radiculopathy Physicians [place] JEONG [address] due to degenerative joint disease of spine 722.52 [facility] [address] Jan, [place] LAWRENCE JACKSON [address] [facility] [address] Jan, Physicians [place]WR[place] JEONG [address] [facility] [address] Jan, [place] LAWRENCE JACKSON [address] [facility] [address] Jan, Physicians [place] JEONG [address] [facility] [address] Jan, Lumbosacral radiculopathy Physicians [place] JEONG [address] due to degenerative joint disease of spine 722.[address] [facility] [address] Dec, Physicians [place] [address] [facility] [address] Dec, Physicians LAWR[place] JEONG [address] [facility] [address] Dec, Lumbosacral radiculopathy Physicians LAWR[place] JEONG [address] due to degenerative joint disease of spine 722.52 [facility] [address] Aug, Physicians LAWR[place] JEONG [address] [facility] [address] [facility] Jun, Physicians [place] JEONG [address] [facility] [address] [facility] February, Physicians LAWRENCE JEONG [address] [facility] [address] Jun, Physicians LAWR[place] JEONG [address] [facility] [address] [facility] February, Physicians LAWR[place] JEONG [address] [facility] [address] Jan, Physicians LAWRENCE JEONG [address] [facility] [address] [facility] Aug, Physicians LAWR[place] JEONG [address] [facility] [address] [facility] 16 Jun, 2009 Physicians LAWR[place] JEONG [address] IMMUNIZATIONS No Known Immunizations SOCIAL HISTORY Never Assessed REASON FOR VISIT Late Entry 02-14-18 PLAN OF CARE VITAL SIGNS MEDICATIONS Unknown Medications RESULTS No Results PROCEDURES No Known procedures INSTRUCTIONS MEDICATIONS ADMINISTERED No Known Medications MEDICAL (GENERAL) HISTORY Type Description Date Surgical History knee surgery ARTHROSCOPY LEFT Surgical History rt arm surgery Surgical History KNEE SURG ON THE RT WHICH WAS AN OPEN SURG
--- OUTSIDE RECORDS SUMMARY | 2018-02-26 16:47 | External Medical Summary ---
:1965 Author Organization [facility] Address [address] [place] [address] Care Team Providers Name Role Phone Zafar Wilder Unavailable Unavailable PROBLEMS Type Condition ICD9-CM Code [id number] Onset Condition SNOMED Code Code Dates Status Problem Lumbar pain 724.2 Active 744594887 Problem RAD (reactive 493.90 Active 676530913781 airway disease) Problem Foot pain 729.5 Active 72150736 Problem Lumbosacral 722.52 Active 18477128 radiculopathy due to degenerative joint disease of spine ALLERGIES Unknown Allergies SOCIAL HISTORY No smoking Hx information available PLAN OF CARE VITAL SIGNS MEDICATIONS Medication Instructions Dosage Frequency Start Date End Date Duration Status [place] [facility] 5-325 MG PO EVERY 6 HRS 1 TABLET 6h Jan, 30 days Active 2016 RESULTS No Results PROCEDURES No Known procedures IMMUNIZATIONS No Known Immunizations
--- OUTSIDE RECORDS SUMMARY | 2018-02-26 16:48 | External Medical Summary ---
:1965 Author Organization [facility] Address [address] [place] [address] Care Team Providers Name Role Phone Zafar Wilder Unavailable Unavailable PROBLEMS Type Condition ICD9-CM Code [id number] Onset Condition SNOMED Code Code Dates Status Problem Lumbar pain 724.2 Active 624668830 Problem RAD (reactive 493.90 Active 640273318649 airway disease) Problem Foot pain 729.5 Active 58462485 Problem Lumbosacral 722.52 Active 03981298 radiculopathy due to degenerative joint disease of spine ALLERGIES Unknown Allergies SOCIAL HISTORY No smoking Hx information available PLAN OF CARE VITAL SIGNS MEDICATIONS Medication Instructions Dosage Frequency Start Date End Date Duration Status [place] 5-325 MG PO EVERY 6 HRS 1 TABLET 6h Jan, 30 days Active 2016 RESULTS No Results PROCEDURES No Known procedures IMMUNIZATIONS No Known Immunizations
--- OUTSIDE RECORDS SUMMARY | 2018-02-26 16:48 | External Medical Summary ---
:1965 Author Organization [facility] Address [address] [place] [address] Care Team Providers Name Role Phone Arnold Molina Unavailable Unavailable PROBLEMS Type Condition ICD9-CM Code [id number] Code Onset Condition SNOMED Code Dates Status Problem Lumbar pain 724.2 Active 183265627 Problem RAD (reactive 493.90 Active 858683102175 airway disease) Problem Foot pain 729.5 Active 19855429 Problem DDD M51.37 Active 00873519 (degenerative disc disease), lumbosacral ALLERGIES Unknown Allergies SOCIAL HISTORY No smoking Hx information available PLAN OF CARE VITAL SIGNS MEDICATIONS Medication Instructions Dosage Frequency Start End Date Duration Status Date [place] 7.5-325 Orally every 6 1 tablet 6h 15 Jul, 30 days Active MG hrs as needed 2013 RESULTS No Results PROCEDURES No Known procedures IMMUNIZATIONS No Known Immunizations
--- OUTSIDE RECORDS SUMMARY | 2018-02-26 16:48 | External Medical Summary ---
:1965 Author Organization [facility] Address [address] [place] [address] Care Team Providers Name Role Phone Gustavo Villasenor Unavailable Unavailable PROBLEMS Type Condition ICD9-CM Code DYA64-QS Code Onset Condition SNOMED Code Dates Status Problem Depression F32.9 Active 98178283 Problem Lumbar pain 724.2 Active 121855924 Problem DDD M51.37 Active 35739086 (degenerative disc disease), lumbosacral Problem RAD (reactive 493.90 Active [id number] airway disease) Problem Foot pain 729.5 Active [id number] ALLERGIES No Known Allergies ENCOUNTERS Encounter Location Date Diagnosis [address] Nov, Nausea R11.0 [facility] [address] [place] [address] [place] [address] Nov, Other intervertebral disc [facility]212 degeneration, lumbosacral region M51.37 [facility] [address] [place] [address] Oct, Depression F32.9 and DDD [facility] [address] (degenerative disc disease), lumbosacral M51.[address] Oct, Depression F32.9 [facility] [address] Sep, [facility] [address] Sep, Other intervertebral disc [facility] degeneration, lumbosacral region M51.37 and Other hyperlipidemia E78.[address] Sep, [facility] JEONG212 [address] Aug, [facility] [address] Jul, [facility] JEONG212 [address] Jun, [facility] JOENG212 [facility] [address] Jun, DDD (degenerative disc [facility] [address] disease), lumbosacral M51.37 [facility] [address] May, [facility]212 [facility] [address] May, DDD (degenerative disc [facility] [address] disease), lumbosacral M51.37 [facility] [address] Apr, Lumbosacral radiculopathy [facility] [place], [place] M54.17 [place] [address] vertebral joint at L5-S1 level of lumbosacral spine S33.101A [facility] [address] Apr, Other intervertebral disc [facility] [address] degeneration, lumbosacral region M51.37 ; COPD (chronic obstructive pulmonary disease) J44.9 ; Osteoarthritis of both knees M17.0 ; Hyperlipidemia, unspecified E78.5 and Family hx of colon cancer Z80.0 [facility] [address] Apr, DDD (degenerative disc [facility] [address] disease), lumbosacral M51.37 [facility] [address] Mar, DDD (degenerative disc [facility]212 disease), lumbosacral M51.37 [facility] [address] Mar, [facility] [address] February, [facility] [address] Nov, [facility] [address] Oct, [facility] [address] Sep, [facility] [address] Sep, [facility] [address] Aug, [facility] [address] Jul, [facility] [address] Jun, [facility] [address] [facility] [address] Jun, [facility]212 [facility] [address] May, [facility]212 [facility] [address] May, [facility]212 [facility] [address] Apr, [facility] [address] Mar, [facility] [address] Mar, [facility]212 [facility] [address] Mar, [facility]212 [facility] [address] February, [facility]212 [facility] [address] Jan, Other hyperlipidemia E78.4 [facility]212 [facility] [address] Jan, [facility]212 [facility] [address] Jan, Other intervertebral disc [facility] [address] degeneration, lumbar region M51.36 ; Other hyperlipidemia E78.4 ; COPD (chronic obstructive pulmonary disease) J44.9 ; Osteoarthritis of both knees M17.0 and High risk for colon cancer Z91.89 [facility] [address] Jan, [facility]212 [facility] [address] Dec, [facility] [address] Nov, [facility] [address] Oct, [facility] [address] Sep, [facility] [address] Aug, [facility] [address] Jul, [facility] [address] Jun, [facility] [address] [facility] [address] May, [facility] [address] [facility] [address] May, [facility] [id number] [place] [address] Family [address] May, Shoulder pain 719.41 [facility] [id number] [place] [address] Family [address] Apr, [facility] [id number] [place] [address] Family [address] Apr, [facility]212 [facility] [address] Apr, Shoulder pain 719.41 and [facility]212 Foreign body 959.9 [facility] [address] Apr, Contusion of shoulder, left [facility] [address] 923.00 [facility] [address] Apr, [facility] [address] [place] [address] Family [address] Mar, [facility] [address] [facility] [address] Mar, [place] [facility] [address] [facility] [address] Mar, [facility] [address] [facility] [address] Mar, Lumbar pain 724.2 [facility] [address] [facility] [address] Mar, [facility] [address] [facility] [address] Mar, Back pain 724.5 [facility] [address] February, [facility] [address] February, [facility] [address] Jan, [facility] [address] Dec, [facility] [address] Nov, [facility] [address] Oct, Bronchitis 490 ; RAD [facility] (reactive airway disease) 493.90 and Serous otitis media 381.4 [facility] [address] Oct, [facility] [address] [facility] [address] Oct, [facility] JEONG212 [facility] [address] Oct, [facility]212 [facility] [address] [facility] Aug, [facility] [place] [address] [address] Jul, [facility] JEONG212 [facility] [address] [facility] Jun, Hyperlipidemia 272.4 [facility]212 [facility] [address] Jun, [facility] [address] [place] [address] [address] Jun, Arthritis of knee 716.96 [facility] and Hypertension 401.9 [facility] [address] May, Allergic dermatitis 692.9 [facility] [address] [facility] [address] February, [facility]212 [facility] [address] Jan, [facility]212 [facility] [address] Jan, Plantar fasciitis 728.71 [facility]212 [facility] [address] Jan, [facility]212 [facility] [address] Dec, [facility]212 [facility] [address] Nov, [facility]212 [facility] [address] Nov, [facility]212 [facility] [address] Nov, Plantar fasciitis 728.71 [facility]212 [facility] [address] Oct, [facility]212 [facility] [address] Aug, [facility] [address] [facility] [address] Aug, [facility] [address] [facility] [address] Aug, [facility] [address] [facility] [address] Aug, Lumbosacral radiculopathy [facility] [address] due to degenerative joint disease of spine 722.52 [facility] [address] Apr, [facility] [address] [facility] [address] Mar, [facility] [address] [facility] [address] February, Lumbosacral radiculopathy [facility] [address] due to degenerative joint disease of spine 722.52 and Foot pain 729.5 [facility] [address] February, [place] [facility] [address] [facility] [address] February, [facility] [address] [facility] [address] February[facility] [address] [facility] [address] February, [place] [facility] [address] [facility] [address] February, [place] [facility] [address] [facility] [address] February, Lumbosacral radiculopathy [facility] [address] due to degenerative joint disease of spine 722.52 [facility] [address] Jan, [place] [facility] [address] [facility] [address] Jan, [facility] [address] [facility] [address] Jan, [place] [facility] [address] [facility] [address] Jan, [facility] [address] [facility] [address] Jan, Lumbosacral radiculopathy [facility] [address] due to degenerative joint disease of spine 722.52 [facility] [address] 28 Dec, 2012 [facility] [address] [facility] [address] Dec, Phys[facility] JENOG [address] [facility] [address] Dec, Lumbosacral radiculopathy [facility] [address] due to degenerative joint disease of spine 722.52 [facility] [address] 27 Aug, 2011 [facility]212 [place] [facility] [address] Jun, [facility]212 [place] [facility] [address] February, [facility] [place] [facility] [address] Jun, [facility] [address] [facility] [address] February, [facility] [address] [place] [address] Jan, [facility] [address] [place] [facility] [address] Aug, [facility] [address] [place] [facility] [address] Jun, [facility] [address] IMMUNIZATIONS No Known Immunizations SOCIAL HISTORY Never Assessed REASON FOR VISIT nausea PLAN OF CARE Activity Details Follow Up prn Reason: Pending Test X ray : KUB 1 VIEW VITAL SIGNS Weight 171 lbs 2017-12-06 Height 68.5 in 2017-12-06 Temperature 98.8 degrees Fahrenheit 2017-12-06 Heart Rate 98 /min 2017-12-06 Oximetry 99 % 2017-12-06 BMI 25.62 kg/m2 2017-12-06 Blood pressure systolic 178 mm Hg 2017-12-06 Blood pressure diastolic 102 mm Hg 2017-12-06 MEDICATIONS Medication Instructions Dosage Frequency Start End Duration Status Date Date [place] 7.5-325 MG Orally every 6 1 tablet as 6h Jul, Active hrs needed 2013 Citalopram Orally Once a 1 tablet 24h 30 day(s) Active Hydrobromide 20 day MG Doxepin HCl 10 Orally q PM 1 capsule 30 day(s) Active MG at bedtime Lipitor 20 mg Orally Once a 1 tablet 24h May, day(s) Active day 2016 RESULTS Name Result Date Reference Range CBC 2017-12-06 WBC 7.5 4.0-10.0 NE% 76.7 42.2-75.2 NE# 5.7 1.4-6.5 LY% 15.5 20.5-51.1 LY# 1.2 1.2-3.4 MO% 7.2 1.7-9.3 MO# 0.5 0.1-0.6 EO% 0.0 0.0-3.0 EO# 0.0 0.0-0.2 BA% 0.3 0.0-1.0 BA# 0.0 0.0-0.1 RBC 5.25 4.50-5.70 HGB 16.5 13.8-17.0 HCT 49.0 39.0-49.0 MCV 93.3 80.0-94.0 MCH 31.4 26.0-32.0 MCHC 33.7 32.0-36.0 RDW 14.2 11.5-15.5 PLT 164 130-400 MPV 11.0 9.0-12.1 COMPREHENSIVE CHEM PROFILE 2017-12-06 GLUCOSE 88 60-99 BUN 13 6-20 CREATININE 0.7 0.5-1.2 eGFR If Am 144 >60 eGFR If Non Am 119 >60 TOTAL BILI 0.58 0.00-1.00 SODIUM 136 133-145 POTASSIUM 3.8 3.3-5.1 CHLORIDE 95 96-108 CO2 21 23-31 CALCIUM 9.3 8.7-10.3 AST/SGOT 96 5-40 ALT/SGPT 66 5-40 ALK PHOS 66 34-114 TOTAL PROTEIN 7.3 5.9-8.4 ALBUMIN 4.3 3.2-5.2 GLOBULIN 3.0 2.0-4.4 Lipase 2017-12-06 Lipase 46 13-60 PROCEDURES Procedure Date Ordered Result Body Site COMP PROFILE Dec 06, 2017 CBC Dec 06, 2017 KUB 1 VIEW Dec 06, 2017 LIPASE BLOOD Dec 06, 2017 INSTRUCTIONS MEDICATIONS ADMINISTERED No Known Medications MEDICAL (GENERAL) HISTORY Type Description Date Surgical History knee surgery ARTHROSCOPY LEFT Surgical History rt arm surgery Surgical History KNEE SURG ON THE RT WHICH WAS AN OPEN SURG
--- OUTSIDE RECORDS SUMMARY | 2018-02-26 16:48 | External Medical Summary ---
:1965 Author Organization [facility] Address [address] [place] [address] Care Team Providers Name Role Phone Zafar Wilder Unavailable Unavailable PROBLEMS Type Condition ICD9-CM Code YNC73-NO Code Onset Condition SNOMED Code Dates Status Problem DDD M51.37 Active 20364501 (degenerative disc disease), lumbosacral Problem Gastritis, K29.70 Active 5105327 presence of bleeding unspecified, unspecified chronicity, unspecified gastritis type Problem Hepatitis K75.9 Active 719666010 Problem RAD (reactive 493.90 Active [id number] airway disease) Problem Foot pain 729.5 Active 76537045 Problem Depression F32.9 Active 90244171 Problem Lumbar pain 724.2 Active [id number] ALLERGIES No Information ENCOUNTERS Encounter Location Date Diagnosis [address] Jan, [facility] [place] Jan, [facility] [place] Jan, Physicians [place], [address] Jan, Physicians [place], [address] Jan, Physicians [place], [address] Jan, Low back pain M54.5 and Physicians [place], [place] [address] Depression F32.[address] Jan, Physicians [place], [address] Jan, Depression F32.9 ; Physicians [place], [place] [address] Gastritis, presence of bleeding unspecified, unspecified chronicity, unspecified gastritis type K29.70 ; DDD (degenerative disc disease), lumbosacral M51.37 and Degenerative arthritis of knee M17.10 [facility] [address] Dec, Nausea R11.0 ; Physicians LAWR[facility] JEONG212 Non-intractable vomiting without nausea, unspecified vomiting type R11.11 and Gastritis, presence of bleeding unspecified, unspecified chronicity, unspecified gastritis type K29.70 [facility] [address] [facility] Dec, Low back pain M54.[address] [place] [address] [place] [address] [place] [address] Nov, Hyperlipidemia, unspecified Physicians LAWR[facility] JEONG212 E78.5 ; Hepatitis K75.9 and Low back pain M54.5 [facility] [address] [place] [address] Nov, Low back pain M54.5 [facility] [place] [address] [place] [address] [place] [address] Nov, Nausea R11.0 [facility] [place] JEONG212 [facility] [address] [place] [address] Nov, Other intervertebral disc Physicians LAWRENCE JEONG degeneration, lumbosacral region M51.37 [facility] [address] [facility] Oct, Depression F32.9 and DDD Phys[facility] [place]WR[facility] JEONG (degenerative disc disease), lumbosacral M51.37 [facility] [address] [place] [address] Oct, Depression F32.9 [facility] [place] JEONG212 [facility] [address] [facility] Sep, Physicians [place]WR[place] JEONG [facility] [address] [facility] Sep, Other intervertebral disc Physicians LAWRENCE JEONG degeneration, lumbosacral region M51.37 and Other hyperlipidemia E78.4 [facility] [address] [facility] Sep, Physicians LAWRENCE JEONG [facility] [address] [place] [address] Aug, Physicians LAWRENCE JEONG [facility] [address] [place] [address] Jul, Physicians LAWRENCE JEONG [facility] [address] Jun, Physicians LAWR[place] JEONG [facility] [address] [place] [address] Jun, DDD (degenerative disc Physicians LAWR[facility] JEONG disease), lumbosacral M51.37 [facility] [address] May, Physicians [place]WR[place] JEONG [address] [facility] [address] May, DDD (degenerative disc Physicians LAWRENCE JEONG disease), lumbosacral M51.37 [facility] [address] Apr, Lumbosacral radiculopathy [facility] [place], [place] M54.17 [place] [address] vertebral joint at L5-S1 level of lumbosacral spine S33.101A [facility] [address] Apr, Other intervertebral disc Physicians LAWRENCE JEONG212 degeneration, lumbosacral region M51.37 ; COPD (chronic obstructive pulmonary disease) J44.9 ; Osteoarthritis of both knees M17.0 ; Hyperlipidemia, unspecified E78.5 and Family hx of colon cancer Z80.0 [facility] [address] Apr, DDD (degenerative disc Physicians LAWRENCE JEONG212 disease), lumbosacral M51.37 [facility] [address] Mar, DDD (degenerative disc Physicians LAWRENCE JEONG disease), lumbosacral M51.37 [facility] [address] Mar, Physicians [place]WR[place] JEONG212 [facility] [address] February, Physicians LAWRENCE JEONG212 [facility] [address] Nov, Physicians LAWRENCE JEONG [facility] [address] Oct, Physicians LAWRENCE JEONG [facility] [address] Sep, Physicians LAWRENCE JEONG [facility] [address] Sep, Physicians LAWRENCE JEONG [facility] [address] Aug, Physicians LAWR[place] JEONG [facility] [address] Jul, Physicians LAWR[place] JEONG [facility] [address] Jun, Physicians LAWR[place] JEONG [facility] [address] Jun, Physicians LAWRENCE JEONG [address] [facility] [address] May, Physicians LAWRENCE JEONG [address] [facility] [address] May, Physicians LAWR[place] JEONG [address] [facility] [address] Apr, Physicians LAWRENCE JEONG [address] [facility] [address] Mar, Physicians LAWR[place] JEONG [address] [facility] [address] Mar, Physicians LAWR[place] JEONG212 [facility] [address] Mar, Physicians LAWR[place] JEONG [address] [facility] [address] February, Physicians LAWRENCE JEONG212 [facility] [address] Jan, Other hyperlipidemia E78.4 [facility] LAWRENCE JEONG [id number] [place] [address] [address] Jan, Physicians LAWR[place] JEONG [address] [facility] [address] Jan, Other intervertebral disc Physicians LAWRENCE JEONG [address] degeneration, lumbar region M51.36 ; Other hyperlipidemia E78.4 ; COPD (chronic obstructive pulmonary disease) J44.9 ; Osteoarthritis of both knees M17.0 and High risk for colon cancer Z91.89 [facility] [address] Jan, Physicians [place]WR[place] JEONG [address] [facility] [address] Dec, Physicians LAWR[place] JEONG [address] [facility] [address] Nov, Physicians LAWR[place] JEONG212 [facility] [address] Oct, Physicians [place]WR[place] JEONG [address] [facility] [address] Sep, Physicians LAWR[place] JEONG212 [facility] [address] Aug, Physicians LAWR[place] JEONG [facility] [address] Jul, Physicians LAWR[place] JEONG212 [facility] [address] Jun, Physicians LAWR[place] JEONG212 [facility] [address] May, Physicians [place], [place] [address] [place] [address] [address] May, Physicians LAWRENCE JEONG [address] [place] [address] [address] May, Shoulder pain 719.41 Phys[facility] LAWRENCE JEONG [address] [place] [address] [address] Apr, Physicians LAWRENCE JEONG [address] [place] [address] [address] Apr, Physicians LAWRENCE JEONG [address] [place] [address] [address] Apr, Shoulder pain 719.41 and Physicians LAWRENCE JEONG212 Foreign body 959.9 [facility] [address] Apr, Contusion of shoulder, left Physicians LAWRENCE JEONG [facility] 923.00 [facility] [address] Apr, Physicians LAWRENCE JEONG [address] [place] [address] [address] Mar, Physicians LAWRENCE JEONG [address] [place] [address] Surgery [address] Mar, [place] [address] [facility] [address] Mar, Physicians LAWRENCE JEONG [address] [place] [address] [address] Mar, Lumbar pain 724.2 Phys[facility] LAWRENCE JEONG [address] [place] [address] [address] Mar, Physicians LAWRENCE JEONG [address] [place] [address] [address] Mar, Back pain 724.5 Physicians LAWRENCE JEONG [address] [place] [address] [address] February, Physicians LAWRENCE JEONG [address] [place] [address] [address] February, Physicians LAWRENCE JEONG [address] [place] [address] [address] Jan, Physicians LAWRENCE JEONG [address] [facility] [address] Dec, Physicians LAWR[place] JEONG [address] [facility] [address] Nov, Physicians LAWR[place] JEONG [address] [facility] [address] Oct, Bronchitis 490 ; RAD Physicians LAWRENCE JEONG (reactive airway disease) 493.90 and Serous otitis media 381.4 [facility] [address] Oct, Physicians LAWRENCE JEONG212 [facility] [address] Oct, Physicians LAWRENCE JEONG212 [facility] [address] Oct, Physicians LAWRENCE JEONG [facility] [address] Aug, Physicians LAWRENCE JEONG [facility] [address] Jul, Physicians LAWR[place] JEONG212 [facility] [address] Jun, Hyperlipidemia 272.4 Physicians LAWR[place] JEONG212 [facility] [address] Jun, Physicians LAWR[place] JEONG212 [facility] [address] Jun, Arthritis of knee 716.96 Physicians LAWRENCE JEONG and Hypertension 401.9 [facility] [address] May, Allergic dermatitis 692.9 Physicians LAWRENCE JEONG212 [facility] [address] February, Physicians LAWRENCE JEONG212 [facility] [address] Jan, Physicians LAWR[place] JEONG212 [facility] [address] Jan, Plantar fasciitis 728.71 Physicians LAWRENCE JEONG [facility] [address] Jan, Physicians LAWR[place] JEONG212 [facility] [address] Dec, Physicians LAWRENCE JEONG [facility] [address] Nov, Physicians LAWRENCE JEONG [facility] [address] Nov, Physicians LAWRENCE JEONG212 [facility] [address] Nov, Plantar fasciitis 728.71 Physicians LAWRENCE JEONG [facility] [address] Oct, Physicians LAWRENCE JEONG [facility] [address] Aug, Physicians LAWRENCE JEONG [facility] [address] Aug, Physicians LAWRENCE JEONG [facility] [address] Aug, Physicians LAWR[place] JEONG [address] [facility] [address] Aug, Lumbosacral radiculopathy Physicians LAWR[place] JEONG [address] due to degenerative joint disease of spine 722.52 [facility] [address] Apr, Physicians LAWRENCE JEONG [address] [facility] [address] Mar, Physicians LAWRENCE JEONG [address] [facility] [address] February, Lumbosacral radiculopathy Physicians LAWRENCE JEONG [address] due to degenerative joint disease of spine 722.52 and Foot pain 729.5 [facility] [address] February, [place] LA[place] JACKSON [address] [facility] [address] February, Physicians LAWRENCE JEONG [address] [facility] [address] February[facility] [address] [facility] [address] February, [place] LAWRENCE JACKSON [address] [facility] [address] February, [facility] [address] [facility] [address] February, Lumbosacral radiculopathy Physicians LAWR[place] JEONG [address] due to degenerative joint disease of spine 722.52 [facility] [address] Jan, [place] LA[place] [address] [facility] [address] Jan, Physicians LAWRENCE JEONG [address] [facility] [address] Jan, [place] LAWRENCE JACKSON [address] [facility] [address] Jan, Physicians LAWR[place] JEONG [address] [facility] [address] Jan, Lumbosacral radiculopathy Physicians LAWRENCE JEONG [address] due to degenerative joint disease of spine 722.52 [facility] [address] Dec, Physicians LAWRENCE JEONG [address] [facility] [address] Dec, Physicians LAWRENCE JEONG [address] [facility] [address] Dec, Lumbosacral radiculopathy Physicians LAWR[place] JEONG [address] due to degenerative joint disease of spine 722.52 [facility] [address] Aug, Physicians LAWRENCE JEONG [address] [facility] [address] [facility] Jun, Physicians LAWRENCE JEONG212 [facility] [address] [facility] February, Physicians LAWRENCE JEONG [address] [facility] [address] Jun, Physicians LAWRENCE JEONG [address] [facility] [address] [facility] February, Physicians LAWRENCE JEONG [address] [facility] [address] Jan, Physicians LAWRENCE JEONG [address] [facility] [address] [facility] Aug, Physicians LAWRENCE JEONG [address] [facility] [address] [facility] Jun, Physicians LAWRENCE JEONG [address] IMMUNIZATIONS No Known Immunizations SOCIAL HISTORY Never Assessed REASON FOR VISIT Update on Condition PLAN OF CARE VITAL SIGNS MEDICATIONS Unknown Medications RESULTS No Results PROCEDURES No Known procedures INSTRUCTIONS MEDICATIONS ADMINISTERED No Known Medications MEDICAL (GENERAL) HISTORY Type Description Date Surgical History knee surgery ARTHROSCOPY LEFT Surgical History rt arm surgery Surgical History KNEE SURG ON THE RT WHICH WAS AN OPEN SURG
--- OUTSIDE RECORDS SUMMARY | 2018-02-26 16:48 | External Medical Summary ---
:1965 Author Organization [facility] [place] Address [address] [place] [address] Care Team Providers Name Role Phone Zafar Wilder Unavailable Unavailable PROBLEMS Type Condition ICD9-CM Code EXE56-RC Code Onset Condition SNOMED Code Dates Status Problem Hepatitis K75.9 Active 160278334 Problem Depression F32.9 Active 74807601 Problem Foot pain 729.5 Active 01247621 Problem DDD M51.37 Active 77506262 (degenerative disc disease), lumbosacral Problem Lumbar pain 724.2 Active 696289362 Problem RAD (reactive 493.90 Active [id number] airway disease) ALLERGIES No Information ENCOUNTERS Encounter Location Date Diagnosis [facility] [address] [place] [address] Dec, Low back pain M54.5 [facility] [address] [place] [address] Nov, Hyperlipidemia, unspecified [facility], [place] [address] E78.5 ; Hepatitis K75.9 and Low back pain M54.5 [facility] [address] [place] [address] Nov, Low back pain M54.5 [facility] [address] [place] [address] Nov, Nausea R11.0 [facility] [address] [place] [address] Nov, Other intervertebral disc [facility] [place] [address] degeneration, lumbosacral region M51.37 [facility] [address] [place] [address] Oct, Depression F32.9 and DDD [facility] [place] [address] (degenerative disc disease), lumbosacral M51.37 [facility] [address] [place] [address] Oct, Depression F32.9 [facility], [address] [place] [address] Sep, [facility], [address] [place] [address] Sep, Other intervertebral disc Physicians [place] [address] degeneration, lumbosacral region M51.37 and Other hyperlipidemia E78.4 [facility] [address] [place] [address] Sep, Physicians [place]ONG [facility] [address] [facility] Aug, Physicians [place] [facility] [address] [facility] Jul, Physicians [place] [facility] [address] [place] [address] Jun, Physicians [place] [address] Jun, DDD (degenerative disc Phys[facility] [place] disease), lumbosacral M51.[address] May, Physicians [place] [address] May, DDD (degenerative disc Phys[facility] [place] disease), lumbosacral M51.37 [facility] [address] Apr, Lumbosacral radiculopathy [facility] [place], [place] M54.17 [place] [address] vertebral joint at L5-S1 level of lumbosacral spine S33.101A [facility] [address] [place] [address] Apr, Other intervertebral disc Physicians [place] JEONG212 degeneration, lumbosacral region M51.37 ; COPD (chronic obstructive pulmonary disease) J44.9 ; Osteoarthritis of both knees M17.0 ; Hyperlipidemia, unspecified E78.5 and Family hx of colon cancer Z80.0 [facility] [address] [facility] Apr, DDD (degenerative disc Physicians [place] JEONG21Darlene michaud), lumbosacral M51.37 [facility] [address] [facility] Mar, DDD (degenerative disc Phys[facility] [place] disease), lumbosacral M51.37 [facility] [address] Mar, Physicians [place] [facility] [address] [facility] February, Physicians [place] [facility] [address] [place] [address] Nov, Physicians [place] [address] [facility] [address] [address] Oct, Physicians [place] JE[place] [address] [place], [place] [address]ta [facility] [address] Sep, Physicians [place] JEONG [id number] [place] [address] [address] Sep, [facility] [place] [address] [facility] [address] Aug, Physicians [place] [address] [facility] [address] Jul, Physicians [place] JE[place]212 [facility] [address] Jun, Physicians [place] [address] [facility] [address] Jun, Physicians [place] JEONG212 [facility] [address] May, Physicians [place] [address] [facility] [address] May, Physicians [place] [address] [facility] [address] Apr, Physicians [place] [address] [place] [address] [address] Mar, Physicians [place] [address] [facility] [address] Mar, Physicians [place] [address] [facility] [address] Mar, Physicians [place] [address] [facility] [address] February, Physicians [place] [address] [facility] [address] Jan, Other hyperlipidemia E78.4 Physicians [place] JEONG212 [facility] [address] Jan, Physicians [place] JEONG212 [facility] [address] Jan, Other intervertebral disc Physicians [place] [address] degeneration, lumbar region M51.36 ; Other hyperlipidemia E78.4 ; COPD (chronic obstructive pulmonary disease) J44.9 ; Osteoarthritis of both knees M17.0 and High risk for colon cancer Z91.89 [place] [address] Jan, Physicians [place] JEONG212 [facility] [address] Dec, [facility]icians [place] [facility] [place] [address] [place] [address] [address] Nov, Physicians [place] [id number] [place] [address] [address] Oct, Physicians [place] [id number] [place] [address] [address] Sep, Physicians [place] [id number] [place] [address] [address] Aug, Physicians [place] [id number] [place] [address] [address] Jul, Physicians [place] [address] [place] [address] [address] Jun, Physicians [place] [address] [place] [address] [address] May, Physicians [place] [address] [facility] [address] May, Physicians [place] [address] [place] [address] [address] May, Shoulder pain 719.41 Physicians [place] [id number] [place] [address] [address] Apr, Physicians [place] [address] [place] [address] [address] Apr, Physicians [place] [address] [place] [address] [address] Apr, Shoulder pain 719.41 and Physicians [place] [address] Foreign body 959.9 [place] [address] Apr, Contusion of shoulder, left Physicians [place] [address] 923.00 [place] [address] Apr, Physicians [place] [address] [place] [address] [address] Mar, Physicians [place] [address] [facility] [address] Mar, [place] [address] [facility] [address] Mar, Physicians [place] JEONG212 [facility] [address] Mar, Lumbar pain 724.2 Phys[facility] [place] [address] [facility] [address] Mar, Physicians [place] [address] [facility] [address] Mar, Back pain 724.5 Physicians [place] JEONG212 [facility] [address] February, Physicians [place] [address] [place] [address] [address] February, Physicians [place] JEONG212 [facility] [address] Jan, Physicians [place] JEONG212 [facility] [address] Dec, Physicians [place] JEONG212 [facility] [address] Nov, Physicians [place] JEONG212 [facility] [address] Oct, Bronchitis 490 ; RAD Phys[facility] [place] JEONG (reactive airway disease) 493.90 and Serous otitis media 381.4 [place] [address] Oct, Physicians [place] JEONG212 [facility] [address] Oct, Physicians [place] [address] [facility] [address] Oct, Physicians [place] JEONG212 [facility] [address] Aug, Physicians [place] JEONG212 [facility] [address] Jul, Physicians [place] JEONG212 [facility] [address] Jun, Hyperlipidemia 272.4 Physicians [place] JEONG212 [facility] [address] Jun, Physicians [place] [address] [facility] [address] Jun, Arthritis of knee 716.96 Physicians [place] JEONG and Hypertension 401.9 [facility] [address] May, Allergic dermatitis 692.9 Physicians [place] JEONG212 [facility] [address] February, Physicians [place] JE[place] [facility] [address] Jan, Physicians [place] JE[place] [facility] [address] Jan, Plantar fasciitis 728.71 Phys[facility] [place] JE[place] [facility] [address] Jan, Physicians [place] JE[place] [facility] [address] Dec, Physicians [place] [address] [facility] [address] Nov, Physicians [place] [address] [facility] [address] Nov, Physicians [place] [address] [facility] [address] Nov, Plantar fasciitis 728.71 Phys[facility] [place] [address] [facility] [address] Oct, Physicians [place] [address] [facility] [address] Aug, Physicians [place] [address] [facility] [address] Aug, Physicians [place] [address] [facility] [address] Aug, Physicians [place] [address] [facility] [address] Aug, Lumbosacral radiculopathy Physicians [place] [address] due to degenerative joint disease of spine 722.52 [place] [address] Apr, Physicians [place] [address] [facility] [address] Mar, Physicians [place] [address] [facility] [address] February, Lumbosacral radiculopathy Physicians [place] [address] due to degenerative joint disease of spine 722.52 and Foot pain 729.5 [facility] [address] February, [place] [address] [facility] [address] February, Physicians [place] [address] [facility] [address] February, [place] [address] [facility] [address] February, [place] [address] [facility] [address] February, [place] [address] [facility] [address] February, Lumbosacral radiculopathy Physicians [place] [address] due to degenerative joint disease of spine 722.52 [facility] [address] Jan, [place] [address] [facility] [address] Jan, Physicians [place] JEONG [address] [facility] [address] Jan, [facility] [address] [facility] [address] Jan, Physicians [place] JE[place] [id number] [place] [address] [address] Jan, Lumbosacral radiculopathy Physicians [place] [address] due to degenerative joint disease of spine 722.52 [facility] [address] Dec, Physicians [place] JEONG [address] [facility] [address] Dec, Physicians [place] JEONG [address] [facility] [address] Dec, Lumbosacral radiculopathy Physicians [place] [address] due to degenerative joint disease of spine 722.52 [place] [address] Aug, Physicians [place] JE[place] [address] [facility] [address] Jun, Physicians [place] JE[place] [address] [facility] [address] [facility] February, Physicians [place] [address] [facility] [address] Jun, Physicians [place] [address] [facility] [address] February, Physicians [place] JEONG [address] [place] [address] [address] Jan, Physicians [place] JEONG [address] [facility] [address] Aug, Physicians [place] JE[place] [address] [facility] [address] Jun, Physicians LAWR[place] JENOG [address] IMMUNIZATIONS No Known Immunizations SOCIAL HISTORY Never Assessed REASON FOR VISIT Cassatt refill PLAN OF CARE VITAL SIGNS MEDICATIONS Medication Instructions Dosage Frequency Start End Date Duration Status Date Cassatt 5-325 MG Orally every 6 1 tablet 6h 30 days Active hrs as needed RESULTS No Results PROCEDURES No Known procedures INSTRUCTIONS MEDICATIONS ADMINISTERED No Known Medications MEDICAL (GENERAL) HISTORY Type Description Date Surgical History knee surgery ARTHROSCOPY LEFT Surgical History rt arm surgery Surgical History KNEE SURG ON THE RT WHICH WAS AN OPEN SURG
--- OUTSIDE RECORDS SUMMARY | 2018-02-26 16:48 | External Medical Summary ---
:1965 Author Organization [employer] Care Team Providers Name Role Phone Chito Castillo Provider Role Unavailable Allergies No Known Allergies Problems Problem Type Condition Code Onset Dates Condition Status Problem RAD (reactive airway disease) 493.90 Active Problem Foot pain 729.5 Active Problem Lumbar pain 724.2 Active Problem Lumbosacral radiculopathy due to 722.52 Active degenerative joint disease of spine Medications Medication Code System Code Instructions Start Date End Date Status Dosage [place] [facility] [id number] 5-325 MG PO EVERY February 17, 1 TABLET -01 6 HRS 2015 Results No Known Results Summary Purpose [employer] Submission
--- OUTSIDE RECORDS SUMMARY | 2018-02-26 16:48 | External Medical Summary ---
:1965 Author Organization [facility] [place] Address [address] [place] [address] Care Team Providers Name Role Phone Zafar Wilder Unavailable Unavailable PROBLEMS Type Condition ICD9-CM Code SMR40-IF Code Onset Condition SNOMED Code Dates Status Problem Hepatitis K75.9 Active 992933760 Problem Depression F32.9 Active 49968384 Problem Foot pain 729.5 Active 37006594 Problem DDD M51.37 Active 98459969 (degenerative disc disease), lumbosacral Problem Lumbar pain 724.2 Active 044590141 Problem RAD (reactive 493.90 Active [id number] airway disease) ALLERGIES No Known Allergies ENCOUNTERS Encounter Location Date Diagnosis [facility] [address] [place] [address] Nov, Hyperlipidemia, unspecified Physicians [place], [place] [address] E78.5 ; Hepatitis K75.9 and Low back pain M54.5 [facility] [address] [place] [address] Nov, Low back pain M54.5 Physicians TARA [place], [address] Nov, Nausea R11.0 Physicians [place]ARA [place], [address] [place] [address] Nov, Other intervertebral disc Physicians [place] [address] degeneration, lumbosacral region M51.[address] Oct, Depression F32.9 and [place] [address] (degenerative disc disease), lumbosacral M51.[address] Oct, Depression F32.9 Physicians [place] JEONG [address] [place] [address] Sep, Physicians [place] [address] Sep, Other intervertebral disc Physicians [place] [address] degeneration, lumbosacral region M51.37 and Other hyperlipidemia E78.4 [facility] [address] Sep, Physicians [place] [address] [facility] [address] Aug, Physicians [place] JEONG [facility] [address] Jul, Physicians [place] JEONG [facility] [address] [facility] Jun, Physicians [place] JEONG [facility] [address] Jun, DDD (degenerative disc Physicians [place] JEONG disease), lumbosacral M51.37 [facility] [address] [facility] May, Physicians [place] JEONG [facility] [address] [place] [address] May, DDD (degenerative disc Physicians [place] JEONG), lumbosacral M51.37 [facility] [address] Apr, Lumbosacral radiculopathy [place], [place] M54.17 [place] [address] vertebral joint at L5-S1 level of lumbosacral spine S33.101A [facility] [address] Apr, Other intervertebral disc Physicians [place] [address] degeneration, lumbosacral region M51.37 ; COPD (chronic obstructive pulmonary disease) J44.9 ; Osteoarthritis of both knees M17.0 ; Hyperlipidemia, unspecified E78.5 and Family hx of colon cancer Z80.0 [facility] [address] Apr, DDD (degenerative disc Physicians [place] JEONG disease), lumbosacral M51.37 [facility] [address] Mar, DDD (degenerative disc Physicians [place] JEONG disease), lumbosacral M51.37 [facility] [address] Mar, Physicians [place] JEONG [facility] [address] February, Physicians [place] JEONG [facility] [address] Nov, Physicians [place] JEONG [facility] [address] Oct, [place]icians [place] [address] [place] [address] [address] Sep, Physicians [place] JEONG [address] [place] [address] [address] Sep, Physicians [place] JEONG [id number] [place] [address] [address] Aug, Physicians [place] JEONG [address] [facility] [address] Jul, Physicians [place] JEONG [address] [place] [address] [address] Jun, Physicians [place] [address] [facility] [address] Jun, Physicians [place] [address] [facility] [address] May, Physicians [place] [address] [facility] [address] May, Physicians [place] JEONG [address] [facility] [address] Apr, Physicians [place] JEONG [id number] [place] [address] [address] Mar, Physicians [place] JE[place] [address] [facility] [address] Mar, Physicians [place]WR[place] JEONG [address] [place] [address] [address] Mar, Physicians [place] JEONG [address] [place] [address] [address] February, Physicians [place]WR[place] JEONG [address] [place] [address] [address] Jan, Other hyperlipidemia E78.4 Physicians [place] JE[place] [address] [facility] [address] Jan, Physicians [place] [address] [facility] [address] Jan, Other intervertebral disc Physicians [place] JE[place] [address] degeneration, lumbar region M51.36 ; Other hyperlipidemia E78.4 ; COPD (chronic obstructive pulmonary disease) J44.9 ; Osteoarthritis of both knees M17.0 and High risk for colon cancer Z91.89 [facility] [address] Jan, Physicians [place] JE[place] [address] [facility] [address] Dec, Physicians [place] [address] [facility] [address] Nov, Physicians [place] JEONG212 [facility] [address] Oct, Physicians [place] [address] [facility] [address] Sep, Physicians [place] JEONG [id number] [place] [address] [address] Aug, Physicians [place] JEONG [address] [place] [address] [address] Jul, Physicians [place] JEONG [address] [facility] [address] Jun, Physicians [place] JE[place] [address] [facility] [address] May, Physicians [place] JE[place] [address] [facility] [address] May, Physicians [place] JEONG [address] [place] [address] [address] May, Shoulder pain 719.41 Physicians [place] JEONG [address] [facility] [address] Apr, Physicians [place] JEONG [address] [place] [address] [address] Apr, Physicians [place] JEONG [address] [facility] [address] Apr, Shoulder pain 719.41 and Physicians [place] JEONG212 Foreign body 959.9 [facility] [address] Apr, Contusion of shoulder, left Physicians [place] JEONG [address] 923.00 [facility] [address] Apr, Physicians [place] JEONG [id number] [place] [address] [address] Mar, Physicians [place] JEONG [address] [facility] [address] Mar, [place] [phone] [facility] [address] Mar, Physicians [place] JEONG [address] [facility] [address] Mar, Lumbar pain 724.2 Physicians [place] JEONG212 [facility] [address] Mar, Physicians [place] JEONG212 [facility] [address] Mar, Back pain 724.5 Physicians [place] JE[place] [address] [facility] [address] February, Physicians [place] JEONG212 [facility] [address] February, Physicians [place] JEONG212 [facility] [address] Jan, Physicians [place] JEONG212 [facility] [address] Dec, Physicians [place] JEONG212 [facility] [address] Nov, Physicians [place] JEONG212 [facility] [address] Oct, Bronchitis 490 ; RAD Physicians [place] JEONG (reactive airway disease) 493.90 and Serous otitis media 381.4 [facility] [address] Oct, Physicians [place] JEONG212 [facility] [address] Oct, Physicians [place] JEONG [facility] [address] Oct, Physicians [place] JEONG212 [facility] [address] Aug, Physicians [place] JEONG212 [facility] [address] Jul, Physicians [place] JEONG212 [facility] [address] Jun, Hyperlipidemia 272.4 Physicians [place] JEONG212 [facility] [address] Jun, Physicians [place] JEONG212 [facility] [address] Jun, Arthritis of knee 716.96 Physicians [place] JEONG and Hypertension 401.9 [facility] [address] May, Allergic dermatitis 692.9 Physicians [place] JEONG [facility] [address] February, Physicians [place] JEONG [facility] [address] Jan, Physicians [place] JEONG [facility] [address] Jan, Plantar fasciitis 728.71 Physicians [place] JEONG [facility] [address] Jan, Physicians [place] JEONG [facility] [address] Dec, Physicians [place] JEONG [facility] [address] Nov, Physicians [place] JEONG [facility] [address] Nov, Physicians [place] JE[place] [address] [facility] [address] Nov, Plantar fasciitis 728.71 Physicians [place] JE[place] [address] [facility] [address] Oct, Physicians [place] [address] [facility] [address] Aug, Physicians [place] JE[place] [address] [facility] [address] Aug, Physicians [place] JE[place] [address] [facility] [address] Aug, Physicians [place] JE[place] [address] [facility] [address] Aug, Lumbosacral radiculopathy Physicians [place] [address] due to degenerative joint disease of spine 722.52 [facility] [address] Apr, Physicians [place] JE[place] [address] [facility] [address] Mar, Physicians [place] JE[place] [address] [facility] [address] February, Lumbosacral radiculopathy Physicians [place] [address] due to degenerative joint disease of spine 722.52 and Foot pain 729.5 [facility] [address] February, [place] [id number] [facility] [address] February, Physicians [place] JE[place] [address] [facility] [address] February, [place] [address] [facility] [address] February, [place] [phone] [facility] [address] February, [place] [phone] [facility] [address] February, Lumbosacral radiculopathy Physicians [place] [address] due to degenerative joint disease of spine 722.52 [facility] [address] Jan, [place] [address] [facility] [address] Jan, Physicians [place] JEONG212 [facility] [address] Jan, [facility] [address] [facility] [address] Jan, Physicians [place] [id number] [facility] [address] Jan, Lumbosacral radiculopathy Physicians [place] JEONG212 due to degenerative joint disease of spine 722.52 [facility] [address] Dec, Physicians [place] [id number] [facility] [address] Dec, Physicians [place] [id number] [facility] [address] Dec, Lumbosacral radiculopathy Physicians [place] JEONG212 due to degenerative joint disease of spine 722.52 [facility] [address] Aug, Physicians [place] JEONG212 [facility] [address] Jun, Physicians [place] JEONG212 [facility] [address] February, Physicians [place] JEONG212 [facility] [address] Jun, Physicians [place] JEONG212 [facility] [address] February, Physicians [place] JE[place] [address] [facility] [address] Jan, Physicians [place] JE[place] [address] [facility] [address] Aug, Physicians [place] JEONG212 [facility] [address] Jun, Physicians [place]WR[place] [id number] IMMUNIZATIONS No Known Immunizations SOCIAL HISTORY Never Assessed REASON FOR VISIT PERSONAL PLAN OF CARE VITAL SIGNS Weight 174.7 lbs 2017-12-14 Height 68.5 in 2017-12-14 Heart Rate 78 /min 2017-12-14 Oximetry 96 % 2017-12-14 BMI 26.17 kg/m2 2017-12-14 Blood pressure systolic 162 mm Hg 2017-12-14 Blood pressure diastolic 92 mm Hg 2017-12-14 MEDICATIONS Medication Instructions Dosage Frequency Start End Duration Status Date Date Ell[place] 5-325 MG Orally every 6 1 tablet as 6h 30 days Active hrs needed Doxepin HCl 10 Orally q PM 1 capsule 30 day(s) Active MG at bedtime Citalopram Orally Once a 1 tablet 24h 30 day(s) Active Hydrobromide 20 day MG Lipitor 20 mg Orally Once a 1 tablet 24h May, day(s) Active day 2016 RESULTS No Results PROCEDURES No Known procedures INSTRUCTIONS MEDICATIONS ADMINISTERED No Known Medications MEDICAL (GENERAL) HISTORY Type Description Date Surgical History knee surgery ARTHROSCOPY LEFT Surgical History rt arm surgery Surgical History KNEE SURG ON THE RT WHICH WAS AN OPEN SURG
--- OUTSIDE RECORDS SUMMARY | 2018-02-26 16:48 | External Medical Summary ---
:1965 Author Organization [facility] Address [address] [place] [address] Care Team Providers Name Role Phone Zafar Wilder Unavailable Unavailable PROBLEMS Type Condition ICD9-CM Code [id number] Onset Condition SNOMED Code Code Dates Status Problem Lumbar pain 724.2 Active 395790972 Problem RAD (reactive 493.90 Active [id number] airway disease) Problem Foot pain 729.5 Active 37079334 Problem Lumbosacral 722.52 Active 54882912 radiculopathy due to degenerative joint disease of spine ALLERGIES Unknown Allergies SOCIAL HISTORY No smoking Hx information available PLAN OF CARE VITAL SIGNS MEDICATIONS Medication Instructions Dosage Frequency Start Date End Date Duration Status [place] 5-325 MG PO EVERY 6 HRS 1 TABLET 6h Jan, 30 days Active 2016 RESULTS No Results PROCEDURES No Known procedures IMMUNIZATIONS No Known Immunizations
--- OUTSIDE RECORDS SUMMARY | 2018-02-26 16:48 | External Medical Summary ---
:1965 Author Organization [facility] Address [address] [place] [address] Care Team Providers Name Role Phone Zafar Wilder Unavailable Unavailable PROBLEMS Type Condition ICD9-CM Code [id number] Code Onset Condition SNOMED Code Dates Status Problem DDD M51.37 Active 86153428 (degenerative disc disease), lumbosacral Problem Gastritis, K29.70 Active 7304734 presence of bleeding unspecified, unspecified chronicity, unspecified gastritis type Problem Hepatitis K75.9 Active 542115306 Problem RAD (reactive 493.90 Active 843303383877 airway disease) Problem Foot pain 729.5 Active 64649410 Problem Depression F32.9 Active 77123064 Problem Lumbar pain 724.2 Active 398981858 ALLERGIES No Information ENCOUNTERS Encounter Location Date Diagnosis [address] Jan, Physicians [facility]BI[facility]SHA [facility], [address] Jan, Low back pain M54.5 and Physicians [place] [address] Depression F32.[address] Jan, Physicians TARA [facility]BI-SHA SHOSHONE, [address] Jan, Depression F32.9 ; Physicians [place] [address] Gastritis, presence of bleeding unspecified, unspecified chronicity, unspecified gastritis type K29.70 ; DDD (degenerative disc disease), lumbosacral M51.37 and Degenerative arthritis of knee M17.[address] Dec, Nausea R11.0 ; Physicians [place] [address] Non-intractable vomiting without nausea, unspecified vomiting type R11.11 and Gastritis, presence of bleeding unspecified, unspecified chronicity, unspecified gastritis type K29.[address] Dec, Low back pain M54.5 Phys[facility] [place] JEONG212 [facility] [address] Nov, Hyperlipidemia, unspecified Physicians [place] JEONG212 E78.5 ; Hepatitis K75.9 and Low back pain M54.5 [facility] [address] Nov, Low back pain M54.5 Physicians [place] JEONG212 [facility] [address] Nov, Nausea R11.0 [facility] [place] JEONG212 [facility] [address] Nov, Other intervertebral disc Physicians [place] JEONG degeneration, lumbosacral region M51.37 [facility] [address] Oct, Depression F32.9 and DDD Phys[facility] [place] [facility] (degenerative disc disease), lumbosacral M51.37 [facility] [address] Oct, Depression F32.9 Phys[facility] [place] JEONG212 [facility] [address] Sep, Physicians [place] JEONG212 [facility] [address] Sep, Other intervertebral disc Physicians [place] JEONG degeneration, lumbosacral region M51.37 and Other hyperlipidemia E78.4 [facility] [address] Sep, Physicians [place] JEONG212 [facility] [address] Aug, Physicians [place] JEONG [facility] [address] Jul, Physicians [place] JE[facility] [address] Jun, Physicians [place]WR[facility] JEONG [facility] [address] Jun, DDD (degenerative disc Physicians [facility] JEONG disease), lumbosacral M51.37 [facility] [address] May, Physicians [place] JE[facility] [address] May, DDD (degenerative disc Physicians [facility] JEONG disease), lumbosacral M51.37 [facility] [address] Apr, Lumbosacral radiculopathy Center [facility] [place] M54.17 [place] [address] vertebral joint at L5-S1 level of lumbosacral spine S33.101A [facility] [address] Apr, Other intervertebral disc Physicians [place] [address] degeneration, lumbosacral region M51.37 ; COPD (chronic obstructive pulmonary disease) J44.9 ; Osteoarthritis of both knees M17.0 ; Hyperlipidemia, unspecified E78.5 and Family hx of colon cancer Z80.0 [facility] [address] Apr, DDD (degenerative disc Phys[facility] [place] [address] disease), lumbosacral M51.37 [facility] [address] Mar, DDD (degenerative disc Phys[facility] [place] [address] disease), lumbosacral M51.37 [facility] [address] Mar, Physicians [place] JE[place] [address] [facility] [address] February, Physicians [place] JEONG [address] [facility] [address] Nov, Physicians [place] [address] [facility] [address] Oct, Physicians [place] [address] [facility] [address] Sep, Physicians [place] JE[place] [address] [facility] [address] Sep, Physicians [place] JE[place] [address] [facility] [address] Aug, Physicians [place] JEONG [address] [facility] [address] Jul, Physicians [place]WR[facility] JEONG [facility] [address] Jun, Physicians [place]WR[place] JEONG212 [facility] [address] Jun, Physicians LAWR[facility] JEONG [facility] [address] May, Physicians LAWR[facility] JEONG [facility] [address] May, Physicians LAWR[facility] JEONG [facility] [address] Apr, Physicians LAWR[facility] JEONG [facility] [address] Mar, Physicians [place] JEONG [address] [facility] [address] Mar, Physicians [place] JEONG [address] [facility] [address] Mar, Physicians [place] JE[place] [address] [facility] [address] February, Physicians [place] JE[place] [address] [facility] [address] Jan, Other hyperlipidemia E78.4 Physicians [place]WR[facility] JEONG212 [facility] [address] Jan, Physicians [place] JEONG212 [facility] [address] Jan, Other intervertebral disc Physicians [place]WR[place] JEONG212 degeneration, lumbar region M51.36 ; Other hyperlipidemia E78.4 ; COPD (chronic obstructive pulmonary disease) J44.9 ; Osteoarthritis of both knees M17.0 and High risk for colon cancer Z91.89 [facility] [address] Jan, Physicians [place] JE[place] [address] [facility] [address] Dec, Physicians [place]WR[place] JEONG212 [facility] [address] Nov, Physicians [place] JEONG212 [facility] [address] Oct, Physicians [place] JEONG212 [facility] [address] Sep, Physicians [place] JEONG [facility] [address] Aug, Physicians [place] JEONG [address] [facility] [address] Jul, Physicians [place]WR[place] JEONG212 [facility] [address] Jun, Physicians [place] JEONG [facility] [address] May, Physicians [place] JEONG212 [facility] [address] May, Physicians LAWR[facility] JEONG [facility] [address] May, Shoulder pain 719.41 Phys[facility] JEONG [facility] [address] Apr, Physicians [place] JEONG [facility] [address] Apr, Physicians [place] JEONG212 [facility] [address] Apr, Shoulder pain 719.41 and Physicians [facility]WR[facility] JEONG Foreign body 959.9 [facility] [address] Apr, Contusion of shoulder, left Physicians [facility] JEONG 923.00 [facility] [address] Apr, Physicians [place] JEONG [address] [facility] [address] Mar, Physicians LAWR[place] JEONG212 [facility] [address] Mar, [facility] [address] [facility] [address] Mar, Physicians [place] JE[place] [address] [facility] [address] Mar, Lumbar pain 724.2 Physicians [place] JEONG212 [facility] [address] Mar, Physicians [place] JEONG [address] [facility] [address] Mar, Back pain 724.5 Phys[facility] [place] [facility]ONG[address] [place] [address] [address] February, Physicians LAWR[place] JEONG212 [facility] [address] February, Physicians [place] JEONG [address] [facility] [address] Jan, Physicians LAWR[place] JEONG212 [facility] [address] Dec, Physicians [place] JEONG [address] [facility] [address] Nov, Physicians [place] JEONG [address] [facility] [address] Oct, Bronchitis 490 ; RAD Physicians [place] JEONG (reactive airway disease) 493.90 and Serous otitis media 381.4 [facility] [address] Oct, Physicians [place] JEONG212 [facility] [address] Oct, Physicians [place]WR[place] JEONG212 [facility] [address] Oct, Physicians [place]WR[place] JEONG212 [facility] [address] Aug, Physicians [place] JEONG [facility] [address] Jul, Physicians LAWR[facility] JEONG [facility] [address] 17 Jun, 2014 Hyperlipidemia 272.4 Physicians [place]WR[facility] JEONG [facility] [address] 15 Jun, 2014 Physicians [place] JEONG212 [facility] [address] Jun, Arthritis of knee 716.96 Physicians [place]WR[facility] JEONG and Hypertension 401.9 [facility] [address] May, Allergic dermatitis 692.9 Physicians [place] JEONG212 [facility] [address] February, Physicians [place] JEONG [facility] [address] Jan, Physicians [place] JEONG212 [facility] [address] Jan, Plantar fasciitis 728.71 Physicians [place] JEONG212 [facility] [address] Jan, Physicians [place]WR[place] JEONG212 [facility] [address] Dec, Physicians LAWR[place] JEONG212 [facility] [address] Nov, Physicians LAWR[place] JEONG212 [facility] [address] Nov, Physicians LAWR[place] JEONG212 [facility] [address] Nov, Plantar fasciitis 728.71 Physicians [place]WR[place] JEONG212 [facility] [address] Oct, Physicians [place]WR[place] JEONG212 [facility] [address] Aug, Physicians [place] JEONG [facility] [address] Aug, Physicians [place] JEONG212 [facility] [address] Aug, [facility] [address] Aug, Lumbosacral radiculopathy Physicians [place] JEONG due to degenerative joint disease of spine 722.52 [facility] [address] Apr, Physicians [place] JE[facility] [address] Mar, Physicians [place] JEONG [address] [facility] [address] February, Lumbosacral radiculopathy Physicians [place] JE[place] [address] due to degenerative joint disease of spine 722.52 and Foot pain 729.5 [facility] [address] February, [facility] [address] [facility] [address] February, Physicians [place] JEONG [address] [facility] [address] February, [facility] [address] [facility] [address] February, [facility] [address] [facility] [address] February, [facility] [address] [facility] [address] February, Lumbosacral radiculopathy Physicians [place] JEONG [address] due to degenerative joint disease of spine 722.52 [facility] [address] Jan, [facility] [address] [facility] [address] Jan, Physicians [place] JEONG [address] [facility] [address] Jan, [facility] [address] [facility] [address] Jan, Physicians [place] JEONG [address] [facility] [address] Jan, Lumbosacral radiculopathy Physicians [place] [address] due to degenerative joint disease of spine 722.52 [facility] [address] Dec, Physicians [place] JEONG [address] [facility] [address] Dec, Physicians LAWR[place] JEONG [facility] [address] Dec, Lumbosacral radiculopathy Physicians [place] JE[place] [address] due to degenerative joint disease of spine 722.52 [facility] [address] Aug, Physicians [place] JEONG [address] [facility] [address] Jun, Physicians [place] JEONG [address] [facility] [address] February, Physicians [place] JEONG [address] [facility] [address] Jun, Physicians [place] JEONG [address] [facility] [address] February, Physicians [place]WR[place] JEONG [address] [facility] [address] Jan, Physicians [place]WR[place] JEONG [address] [facility] [address] [facility] Aug, Physicians [place] JEONG [address] [facility] [address] Jun, Physicians [place] JEONG [address] IMMUNIZATIONS No Known Immunizations SOCIAL HISTORY Never Assessed REASON FOR VISIT [place]/Citalopram refill PLAN OF CARE VITAL SIGNS MEDICATIONS Medication Instructions Dosage Frequency Start End Duration Status Date Date [place] 5-325 MG Orally every 6 1 tablet 6h 30 days Active hrs as needed Citalopram Orally Once a 1 tablet 24h 30 day(s) Active Hydrobromide 20 day MG RESULTS No Results PROCEDURES No Known procedures INSTRUCTIONS MEDICATIONS ADMINISTERED No Known Medications MEDICAL (GENERAL) HISTORY Type Description Date Surgical History knee surgery ARTHROSCOPY LEFT Surgical History rt arm surgery Surgical History KNEE SURG ON THE RT WHICH WAS AN OPEN SURG
--- OUTSIDE RECORDS SUMMARY | 2018-02-26 16:49 | External Medical Summary ---
[...] Instructions Start Date End Date Status Dosage [place] [facility] [address]22 5-325 MG Orally February 17 tablet as 3-01 EVERY 6 HRS 2015 needed Results No Known Results Summary Purpose eClinicalWorks Submission
--- OUTSIDE RECORDS SUMMARY | 2018-02-26 16:49 | External Medical Summary ---
:1965 Author Organization [facility] Address [address] [place] [address] Care Team Providers Name Role Phone Zafar Wilder Unavailable Unavailable PROBLEMS Type Condition ICD9-CM Code ENP01-KR Code Onset Condition SNOMED Code Dates Status Problem Lumbar pain 724.2 Active 967035904 Problem RAD (reactive 493.90 Active 319867187623 airway disease) Problem Foot pain 729.5 Active 58583556 Problem DDD M51.37 Active 71710380 (degenerative disc disease), lumbosacral ALLERGIES Unknown Allergies SOCIAL HISTORY No smoking Hx information available PLAN OF CARE VITAL SIGNS MEDICATIONS Medication Instructions Dosage Frequency Start End Date Duration Status Date [place] 7.5-325 Orally every 6 1 tablet 6h 15 Jul, 30 days Active MG hrs as needed 2013 RESULTS No Results PROCEDURES No Known procedures IMMUNIZATIONS No Known Immunizations
--- OUTSIDE RECORDS SUMMARY | 2018-02-26 16:49 | External Medical Summary ---
[...] Instructions Start Date End Date Status Dosage [place] [facility] [address]959 5-325 MG Orally February 17, 1 tablet as 3-01 every 6 hrs 2015 needed Meloxicam [facility] 60704-235 7.5 MG Orally BID February 17, 1 tablet 4-2015 Doxepin HCl [facility] 81092-170 25 MG Orally Once February 17, 1 capsule 2-30 a day 2016 at bedtime Results No Known Results Summary Purpose eClinicalWorks Submission
--- OUTSIDE RECORDS SUMMARY | 2018-02-26 16:49 | External Medical Summary ---
[...] Active degenerative joint disease of spine Assessment Lumbar pain 724.2 Active Medications Medication Code System Code Instructions Start Date End Date Status Dosage [place] [facility] [address]67-759 7.5-325 MG Orally Oct 15, 1 tablet as 1-30 every 6 hrs 2013 [place] [address] 20 MG Orally Once Sept 17, 1 tablet in 4-10 a day 2014 the evening Procedures Procedure Coding System Code Date OFFICE VISITEST PT CPT-4 37683 March 31, 2015 SPINE LUMBAR 23 CPT-4 92340 March 31, 2015 Vital Signs Date/Time: March 31, 2015 Blood Pressure Systolic 142 mm Hg Height 68.5 in Weight 167.8 lbs BMI 25.14 Index Blood Pressure Diastolic 78 mm Hg Results No Known Results Summary Purpose eClinicalWorks Submission
--- OUTSIDE RECORDS SUMMARY | 2018-02-26 16:49 | External Medical Summary ---
:1965 Author Organization [facility] Address [address] [place] [address] Care Team Providers Name Role Phone [facility] Unavailable Unavailable PROBLEMS Type Condition ICD9-CM Code [id number] Code Onset Condition SNOMED Code Dates Status Problem Lumbar pain 724.2 Active 037165803 Problem RAD (reactive 493.90 Active 913265006828 airway disease) Problem Foot pain 729.5 Active 97239166 Problem DDD M51.37 Active 66590958 (degenerative disc disease), lumbosacral ALLERGIES Unknown Allergies SOCIAL HISTORY No smoking Hx information available PLAN OF CARE VITAL SIGNS MEDICATIONS Unknown Medications RESULTS No Results PROCEDURES Procedure Date Ordered Related Diagnosis Body Site NJX INTERLAMINAR LMBR/SAC May 23, 2017 None of above events reported May 23, 2017 NO prophylatic IV antibiotic ordered or May 23, 2017 given IMMUNIZATIONS No Known Immunizations
--- OUTSIDE RECORDS SUMMARY | 2018-02-26 16:49 | External Medical Summary ---
[...] Instructions Start Date End Date Status Dosage [place] [facility] [address] 5-325 MG PO EVERY February 17, 1 TABLET -01 6 HRS 2015 Results No Known Results Summary Purpose eClinicalWorks Submission
--- OUTSIDE RECORDS SUMMARY | 2018-02-26 16:49 | External Medical Summary ---
:1965 Author Organization eClinicalWorks Care Team Providers Name Role Phone Zafar Wilder Provider Role Unavailable Allergies No Known Allergies Problems Problem Type Condition ICD-9 Code Onset Dates Condition Status Problem Lumbosacral radiculopathy due to 722.52 Active degenerative joint disease of spine Problem Foot pain 729.5 Active Medications Medication Code System Code Instructions Start End Date Status Dosage Date Zithromax Z-Jc [facility] 31557-44 250 MG Orally Nov 25, Active 2 tablets 60-75 Once a day 2014 on the first day, then 1 tablet daily for 4 days Results No Known Results Summary Purpose eClinicalWorks Submission
--- OUTSIDE RECORDS SUMMARY | 2018-02-26 16:49 | External Medical Summary ---
:1965 Author Organization eClinicalWorks Care Team Providers Name Role Phone Eben Somers Provider Role Unavailable Allergies, Adverse Reactions, Alerts Substance Reaction Event Type N.K.D.A. Info Not Available Non Drug Allergy Problems Problem Type Condition ICD-9 Code Onset Dates Condition Status Problem RAD (reactive airway disease) 493.90 Active Problem Foot pain 729.5 Active Problem Lumbar pain 724.2 Active Assessment Foreign body 959.9 Active Problem Lumbosacral radiculopathy due to 722.52 Active degenerative joint disease of spine Assessment Shoulder pain 719.41 Active Medications Medication Code System Code Instructions Start Date End Date Status Dosage [place] [facility] [address] 7.5-325 MG Orally Aug 13, 1 tablet 1-30 every 6 hrs 2013 as needed Simvastatin [facility] [address]-149 20 mg daily 1 tablet 4-10 Procedures Procedure Coding System Code Date OFFICE VISITEST PT CPT-4 35318 May 28, 2015 [place] CPT-4 A4565 May 28, 2015 ORBITS FOR FB CPT-4 34526 May 28, 2015 Vital Signs Date/Time: May 28, 2015 Blood Pressure Systolic 169 mm Hg Height 68.5 in Weight 153.8 lbs BMI 23.04 Index Oximetry 98 % Cardiac Monitoring Heart Rate 73 /min Blood Pressure Diastolic 95 mm Hg Results No Known Results Summary Purpose eClinicalWorks Submission
--- OUTSIDE RECORDS SUMMARY | 2018-02-26 16:49 | External Medical Summary ---
:[address] [facility] Address [address] [place] [address] Care Team Providers Name Role Phone Zafar Wilder Unavailable Unavailable PROBLEMS Type Condition ICD9-CM Code UQC83-SX Code Onset Condition SNOMED Code Dates Status Problem Lumbar pain 724.2 Active 885943833 Problem RAD (reactive 493.90 Active 727545861450 airway disease) Problem Foot pain 729.5 Active 19911180 Problem DDD M51.37 Active 43903782 (degenerative disc disease), lumbosacral ALLERGIES Substance Reaction Event Type Date Status N.K.D.A. Unknown Non Drug Allergy Apr, Unknown SOCIAL HISTORY No smoking Hx information available PLAN OF CARE Activity Details Pending Test CBC Pending Test COMPREHENSIVE CHEM PROFILE Pending Test LIPID PROFILE Pending Test PSA VITAL SIGNS Weight 177.3 lbs 2017-05-16 Height 68.5 in 2017-05-16 Heart Rate 74 /min 2017-05-16 Oximetry 94 % 2017-05-16 BMI 26.56 kg/m2 2017-05-16 Blood pressure systolic 137 mm Hg 2017-05-16 Blood pressure diastolic 83 mm Hg 2017-05-16 MEDICATIONS Medication Instructions Dosage Frequency Start End Duration Status Date Date Doxepin HCl 25 MG Orally Once a 1 capsule 24h Jan, 30 days Active day at bedtime 2015 Meloxicam 7.5 MG Orally BID 1 tablet 12h Jan, 30 days Active 2016 [place] 7.5-325 MG Orally every 6 1 tablet 6h 15 Jul, 30 days Active hrs as needed 2013 Cyclobenzaprine HCl Orally Three 1/2 - 1 8h 22 Mar, 10 days Active 10 MG times a day tablet as 2017 needed Simvastatin 40 MG Orally Once a 1 TABLET 24h Jan, 30 days Active day 2016 RESULTS No Results PROCEDURES Procedure Date Ordered Related Diagnosis Body Site CBC May 16, 2017 COMP PROFILE May 16, 2017 PSA,TOTAL May 16, 2017 LIPID PROFILE May 16, 2017 PREV MED SEREST 40 May 16, 2017 IMMUNIZATIONS No Known Immunizations
--- OUTSIDE RECORDS SUMMARY | 2018-02-26 16:49 | External Medical Summary ---
:1965 Author Organization [facility] Address [address] [place] [address] Care Team Providers Name Role Phone Zafar Wilder Unavailable Unavailable PROBLEMS Type Condition ICD9-CM Code TMH62-PD Code Onset Condition SNOMED Code Dates Status Problem Lumbar pain 724.2 Active 677888978 Problem RAD (reactive 493.90 Active 326233665037 airway disease) Problem Foot pain 729.5 Active 41914864 Problem DDD M51.37 Active 58920095 (degenerative disc disease), lumbosacral ALLERGIES No Known Allergies SOCIAL HISTORY Never Assessed PLAN OF CARE VITAL SIGNS Weight 182.8 lbs 2017-10-26 Height 68.5 in 2017-10-26 Heart Rate 88 /min 2017-10-26 Oximetry 98 % 2017-10-26 BMI 27.39 kg/m2 2017-10-26 Blood pressure systolic 140 mm Hg 2017-10-26 Blood pressure diastolic 82 mm Hg 2017-10-26 MEDICATIONS Medication Instructions Dosage Frequency Start End Date Duration Status Date [place] 7.5-325 Orally every 6 1 tablet 6h 15 Jul, days Active MG hrs as needed 2013 Meloxicam 7.5 Orally BID 1 tablet 12h 30 day(s) Active MG Lipitor 20 mg Orally Once a 1 tablet 24h 14 May, day(s) Active day 2016 Simvastatin 40 Orally Once a 1 TABLET 24h Jan, 30 days Active MG day 2015 RESULTS Name Result Date Reference Range LIPID PROFILE 2017-10-26 CHOLESTEROL 300 50-200 TRIGLYCERIDE 355 30-150 HDL-DIRECT 37 35-55 LDL-DIRECT 235 0-99 CHOL/HDL 8.1 4.0-6.7 PROCEDURES Procedure Date Ordered Result Body Site LIPID PROFILE Oct 26, 2017 IMMUNIZATIONS No Known Immunizations MEDICAL (GENERAL) HISTORY Type Description Date Surgical History knee surgery ARTHROSCOPY LEFT Surgical History rt arm surgery Surgical History KNEE SURG ON THE RT WHICH WAS AN OPEN SURG
--- OUTSIDE RECORDS SUMMARY | 2018-02-26 16:49 | External Medical Summary ---
:1965 Author Organization [facility] [place] Address [address] [place] [address] Care Team Providers Name Role Phone Zafar Wilder Unavailable Unavailable PROBLEMS Type Condition ICD9-CM Code [id number] Code Onset Condition SNOMED Code Dates Status Problem DDD M51.37 Active 99771333 (degenerative disc disease), lumbosacral Problem Gastritis, K29.70 Active 7114987 presence of bleeding unspecified, unspecified chronicity, unspecified gastritis type Problem Hepatitis K75.9 Active 779318271 Problem RAD (reactive 493.90 Active [id number] airway disease) Problem Foot pain 729.5 Active 23276221 Problem Depression F32.9 Active 90513494 Problem Lumbar pain 724.2 Active [id number] ALLERGIES No Information ENCOUNTERS Encounter Location Date Diagnosis [facility] [address] [place] [address] Jan, [facility] [place], [address] Jan, [facility] [place] [place], [address] [place] [address] Jan, [facility] [place], [address] [place] [address] Jan, [facility] [place] [address] [place] [address] [place] [address] Jan, [facility] [place] [address] [place] [address] [place] [address] Jan, [facility] [place] [address] [place] [address] Jan, Low back pain M54.5 and Physicians [place] [address] Depression F32.9 [facility] [address] [place] [address] Jan, [facility] [place], [address] Jan, Depression F32.9 ; [facility] [place] [address] Gastritis, presence of bleeding unspecified, unspecified chronicity, unspecified gastritis type K29.70 ; DDD (degenerative disc disease), lumbosacral M51.37 and Degenerative arthritis of knee M17.10 [facility] [address] [place] [address] Dec, Nausea R11.0 ; [facility] [place] [place] Non-intractable vomiting without nausea, unspecified vomiting type R11.11 and Gastritis, presence of bleeding unspecified, unspecified chronicity, unspecified gastritis type K29.70 [facility] [address] [place] [address] Dec, Low back pain M54.5 [facility] [place] [address] [place] [address] [place] [address] Nov, Hyperlipidemia, unspecified [facility] [place]212 E78.5 ; Hepatitis K75.9 and Low back pain M54.[address] Nov, Low back pain M54.[address] [facility] [place] [place] [address] [place] [address] Nov, Nausea R11.0 [facility] [place] Nov, Other intervertebral disc [facility] [place] degeneration, lumbosacral region M51.37 [facility] [address] [place] [address] Oct, Depression F32.9 and DDD [facility] [place] (degenerative disc disease), lumbosacral M51.37 [facility] [address] Oct, Depression F32.9 [facility] [place]ONG212 [facility] [address] [place] [address] Sep, Physicians [place]212 [facility] [address] [place] [address] Sep, Other intervertebral disc Phys[facility] [place] degeneration, lumbosacral region M51.37 and Other hyperlipidemia E78.4 [facility] [address] [place] [address] Sep, Physicians [place] [facility] [address] [place] [address] Aug, Physicians [place] [facility] [address] [place] [address] Jul, Physicians [place] [facility] [address] [place] [address] Jun, Physicians [place] [address] Jun, DDD (degenerative disc Phys[facility] [place] [address] disease), lumbosacral M51.37 [facility] [address] May, Physicians [place] [facility] [address] May, DDD (degenerative disc Phys[facility] [place] [address] disease), lumbosacral M51.37 [facility] [address] Apr, Lumbosacral radiculopathy [facility] [place] [place] M54.17 [place] [address] vertebral joint at L5-S1 level of lumbosacral spine S33.101A [facility] [address] Apr, Other intervertebral disc Phys[facility] [place] [address] degeneration, lumbosacral region M51.37 ; COPD (chronic obstructive pulmonary disease) J44.9 ; Osteoarthritis of both knees M17.0 ; Hyperlipidemia, unspecified E78.5 and Family hx of colon cancer Z80.0 [facility] [address] Apr, DDD (degenerative disc Phys[facility] [place] JEONG212 disease), lumbosacral M51.37 [facility] [address] Mar, DDD (degenerative disc [facility] [place] disease), lumbosacral M51.37 [facility] [address] Mar, Physicians [place] JEONG212 [facility] [address] February, Physicians [place] [facility] [address] Nov, Physicians [place] [facility] [address] Oct, [facility] [place] [facility] [address] Sep, [facility] [place] [facility] [address] Sep, Phys[facility] [place] [facility] [address] Aug, Physicians [place] [facility] [address] Jul, Physicians [place] [facility] [address] Jun, Phys[facility] [place] [address] [facility] [address] Jun, Phys[facility] [place] [address] [facility] [address] May, Physicians [place] [address] [facility] [address] May, Physicians [place] [address] [facility] [address] Apr, Physicians [place] JEONG212 [facility] [address] Mar, Physicians [place] JEONG212 [facility] [address] Mar, Physicians [place] [address] [facility] [address] Mar, Physicians [place]212 [facility] [address] February, Physicians [place] JE[place]212 [facility] [address] Jan, Other hyperlipidemia E78.4 [facility] [place]212 [facility] [address] Jan, Physicians [place] [address] [facility] [address] Jan, Other intervertebral disc Phys[facility] [place] [address] degeneration, lumbar region M51.36 ; Other hyperlipidemia E78.4 ; COPD (chronic obstructive pulmonary disease) J44.9 ; Osteoarthritis of both knees M17.0 and High risk for colon cancer Z91.89 [facility] [address] Jan, Physicians [place]212 [facility] [address] Dec, Physicians [place]212 [facility] [address] Nov, Physicians [place]212 [facility] [address] Oct, Physicians [place] JEONG212 [facility] [address] Sep, Phys[facility] [address] Aug, Physicians [place] [facility] [address] Jul, Physicians [place] [facility] [address] Jun, Physicians [place]WR[place] JEONG2 [facility] [address] May, Physicians [place]WRENCE JEONG [address] [place] [address] Family [address] May, Physicians [place]WR[place]ONG [address] [place] [address] Family [address] May, Shoulder pain 719.41 [facility] [place]WR[place] JEONG [address] [place] [address] Family [address] Apr, Physicians [place]WR[place] JEONG [address] [place] [address] Family [address] Apr, Physicians [place] [address] [place] [address] [address] Apr, Shoulder pain 719.41 and Physicians LAWRENCE JEONG212 Foreign body 959.9 [facility] [address] Apr, Contusion of shoulder, left Physicians LAWR[place] JEONG212 923.00 [facility] [address] Apr, Physicians [place]WR[place]ONG [address] [place] [address] [address] Mar, Physicians [place] [address] [facility] [address] Mar, [place] [address] [facility] [address] Mar, Physicians [place] [address] [place] [address] [address] Mar, Lumbar pain 724.2 [facility] [place] [address] [place] [address] [address] Mar, Physicians [place] [address] [place] [address] [address] Mar, Back pain 724.5 Phys[facility] [place] [address] [facility] [address] February, Physicians [place] [address] [facility] [address] February, Physicians [place] [address] [facility] [address] Jan, Physicians [place] [address] [facility] [address] Dec, Physicians [place] JEONG212 [facility] [address] Nov, Physicians [place] [address] [facility] [address] Oct, Bronchitis 490 ; RAD [facility] [place] (reactive airway disease) 493.90 and Serous otitis media 381.4 [facility] [address] Oct, Physicians [place]WR[place] JEONG [facility] [address] Oct, Physicians [place]WR[place] [facility] [address] Oct, Physicians [place]WR[place] JEONG [facility] [address] Aug, Physicians [place] JEONG212 [facility] [address] Jul, Physicians [place] JEONG212 [facility] [address] Jun, Hyperlipidemia 272.4 Phys[facility] [place] [facility] [address] Jun, Physicians [place]WR[place] JEONG [facility] [address] Jun, Arthritis of knee 716.96 Phys[facility] [place]WR[facility] [place]ONG and Hypertension 401.9 [facility] [address] May, Allergic dermatitis 692.9 Physicians ALWR[place] JEONG212 [facility] [address] February, Physicians [place] JEONG212 [facility] [address] Jan, Physicians [place] JEONG212 [facility] [address] Jan, Plantar fasciitis 728.71 [facility] [place]WR[place] JEONG [facility] [address] Jan, Physicians [place]WR[place] JEONG [facility] [address] Dec, Physicians [place]WR[place] JEONG [facility] [address] Nov, Physicians LAWR[place] JEONG [facility] [address] Nov, Physicians LAWR[place] JEONG [facility] [address] Nov, Plantar fasciitis 728.71 [facility] LAWR[place] JEONG [facility] [address] Oct, Physicians LAWR[place] JEONG [facility] [address] Aug, Physicians LAWR[place] JEONG [facility] [address] Aug, Physicians [place]WR[place] JEONG [address] [facility] [address] Aug, Physicians [place] JEONG [address] [facility] [address] Aug, Lumbosacral radiculopathy Physicians [place] JEONG [address] due to degenerative joint disease of spine 722.52 [facility] [address] Apr, Physicians [place]WR[place] JEONG [address] [facility] [address] Mar, Physicians [place] JEONG [address] [facility] [address] February, Lumbosacral radiculopathy Physicians [place] [address] due to degenerative joint disease of spine 722.52 and Foot pain 729.5 [facility] [address] February, [place] [address] [facility] [address] February, Physicians [place] JEONG [address] [facility] [address] February, [facility] [address] [facility] [address] February, [place] [address] [facility] [address] February, [place] [address] [facility] [address] February, Lumbosacral radiculopathy Phys[facility] [place] JE[place] [address] due to degenerative joint disease of spine 722.52 [facility] [address] Jan, [place] [address] [facility] [address] Jan, Physicians LAWR[place] JEONG [address] [facility] [address] Jan, [place] [address] [facility] [address] Jan, Physicians [place] JEOGN [address] [facility] [address] Jan, Lumbosacral radiculopathy Physicians [place] JEONG [address] due to degenerative joint disease of spine 722.52 [facility] [address] 28 Mar, 2013 Physicians [place]WR[place] JEONG [address] [facility] [address] Dec, Physicians [place] JEONG [address] [facility] [address] Dec, Lumbosacral radiculopathy Physicians [place] JEONG [address] due to degenerative joint disease of spine 722.52 [facility] [address] Aug, Physicians LAWR[place] JEONG212 [facility] [address] [facility] Jun, Physicians LAWRENCE JEONG [facility] [address] [facility] February, Physicians [place] JEONG [address] [facility] [address] [facility] Jun, Physicians [place] JEONG [address] [facility] [address] [facility] February, Physicians [place]WR[place] JEONG [address] [facility] [address] [facility] Jan, Physicians [place] JEONG [address] [facility] [address] [facility] Aug, Physicians [place] JEONG [address] [facility] [address] [facility] Jun, Physicians [place] JE[place] [address] IMMUNIZATIONS No Known Immunizations SOCIAL HISTORY Never Assessed REASON FOR VISIT Opiod question PLAN OF CARE VITAL SIGNS MEDICATIONS Unknown Medications RESULTS No Results PROCEDURES No Known procedures INSTRUCTIONS MEDICATIONS ADMINISTERED No Known Medications MEDICAL (GENERAL) HISTORY Type Description Date Surgical History knee surgery ARTHROSCOPY LEFT Surgical History rt arm surgery Surgical History KNEE SURG ON THE RT WHICH WAS AN OPEN SURG
--- OUTSIDE RECORDS SUMMARY | 2018-02-26 16:49 | External Medical Summary ---
:1965 Author Organization [facility] Address [address] [place] [address] Care Team Providers Name Role Phone Zafar Wilder Unavailable Unavailable PROBLEMS Type Condition ICD9-CM Code [id number] Code Onset Condition SNOMED Code Dates Status Problem DDD M51.37 Active 25134404 (degenerative disc disease), lumbosacral Problem Gastritis, K29.70 Active 0502679 presence of bleeding unspecified, unspecified chronicity, unspecified gastritis type Problem Hepatitis K75.9 Active 798529446 Problem RAD (reactive 493.90 Active 017235939462 airway disease) Problem Foot pain 729.5 Active 73127081 Problem Depression F32.9 Active 23950201 Problem Lumbar pain 724.2 Active 829334258 ALLERGIES No Information ENCOUNTERS Encounter Location Date Diagnosis [address] Jan, Physicians TARA [address] Jan, Depression F32.9 ; Physicians TARA TEJON, [facility]212 Gastritis, presence of bleeding unspecified, unspecified chronicity, unspecified gastritis type K29.70 ; DDD (degenerative disc disease), lumbosacral M51.37 and Degenerative arthritis of knee M17.[address] Dec, Nausea R11.0 ; Physicians TARA TEJON [facility]212 Non-intractable vomiting without nausea, unspecified vomiting type R11.11 and Gastritis, presence of bleeding unspecified, unspecified chronicity, unspecified gastritis type K29.[address] Dec, Low back pain M54.5 Physicians TARA TEJON, [address] Nov, Hyperlipidemia, [place] [address] E78.5 ; Hepatitis K75.9 and Low back pain M54.[address] Nov, Low back pain M54.5 Physicians LAWRENCE JEONG [address] [facility] [address] Nov, Nausea R11.0 Physicians LAWRENCE JEONG [address] [place] [address] [address] Nov, Other intervertebral disc Physicians LAWRENCE JEONG degeneration, lumbosacral region M51.37 [facility] [address] Oct, Depression F32.9 and DDD Physicians LAWRENCE JEONG (degenerative disc disease), lumbosacral M51.37 [facility] [address] Oct, Depression F32.9 Physicians LAWRENCE JEONG [address] [facility] [address] Sep, Physicians LAWRENCE JEONG [address] [facility] [address] Sep, Other intervertebral disc Physicians LAWRENCE JEONG degeneration, lumbosacral region M51.37 and Other hyperlipidemia E78.4 [facility] [address] Sep, Physicians LAWRENCE JEONG212 [facility] [address] Aug, Physicians LAWRENCE JEONG212 [facility] [address] Jul, Physicians LAWRENCE JEONG212 [facility] [address] Jun, Physicians LAWRENCE JEONG212 [facility] [address] Jun, DDD (degenerative disc Physicians LAWRENCE JEONG disease), lumbosacral M51.37 [facility] [address] May, Physicians LAWRENCE JEONG [facility] [address] May, DDD (degenerative disc Physicians LAWRENCE JEONG disease), lumbosacral M51.37 [facility] [address] Apr, Lumbosacral radiculopathy [facility] [place], [place] M54.17 [place] [address] vertebral joint at L5-S1 level of lumbosacral spine S33.101A [facility] [address] Apr, Other intervertebral disc Physicians LAWRENCE JEONG degeneration, lumbosacral region M51.37 ; COPD (chronic obstructive pulmonary disease) J44.9 ; Osteoarthritis of both knees M17.0 ; Hyperlipidemia, unspecified E78.5 and Family hx of colon cancer Z80.0 [facility] [address] Apr, DDD (degenerative disc Physicians LAWRENCE JEONG212 disease), lumbosacral M51.37 [facility] [address] Mar, DDD (degenerative disc Physicians LAWRENCE JEONG disease), lumbosacral M51.37 [facility] [address] Mar, Physicians [facility] [address] February, Physicians LAWRENCE JEONG [facility] [address] Nov, Physicians LAWRENCE JEONG [facility] [address] Oct, Physicians LAWRENCE JEONG212 [facility] [address] Sep, Physicians [facility]WR[facility] JE[facility] [address] Sep, Physicians LAWRENCE JEONG212 [facility] [address] Aug, Physicians LAWRENCE JEONG [facility] [address] Jul, Physicians LAWRENCE JEONG [facility] [address] Jun, Physicians LAWRENCE JEONG212 [facility] [address] Jun, Physicians LAWRENCE JEONG [facility] [address] May, Physicians LAWRENCE JEONG [facility] [address] May, Physicians LAWRENCE JEONG [facility] [address] Apr, Physicians LAWRENCE JEONG [facility] [address] Mar, Physicians [facility]WR[facility] JE[facility] [address] Mar, Physicians LAWRENCE JEONG [facility] [address] Mar, Physicians LAWRENCE JEONG [facility] [address] February, Physicians LAWRENCE JEONG [id number] [place] [address] [address] Jan, Other hyperlipidemia E78.4 Physicians LAWRENCE JEONG [address] [facility] [address] Jan, Physicians LAWRENCE JEONG212 [facility] [address] Jan, Other intervertebral disc Physicians LAWRENCE JEONG212 degeneration, lumbar region M51.36 ; Other hyperlipidemia E78.4 ; COPD (chronic obstructive pulmonary disease) J44.9 ; Osteoarthritis of both knees M17.0 and High risk for colon cancer Z91.89 [facility] [address] Jan, Physicians LAWRENCE JEONG [address] [facility] [address] Dec, Physicians LAWRENCE JEONG [facility] [address] Nov, Physicians LAWRENCE JEONG [address] [facility] [address] Oct, Physicians LAWRENCE JEONG [address] [facility] [address] Sep, Physicians LAWRENCE JEONG [address] [facility] [address] Aug, Physicians LAWRENCE JEONG [address] [facility] [address] Jul, Physicians LAWRENCE JEONG [address] [facility] [address] Jun, Physicians LAWRENCE JEONG [address] [facility] [address] May, Physicians LAWRENCE JEONG212 [facility] [address] May, Physicians LAWRENCE JEONG212 [facility] [address] May, Shoulder pain 719.41 Physicians LAWRENCE JEONG [facility] [address] Apr, Physicians LAWRENCE JEONG [facility] [address] Apr, Physicians LAWRENCE JEONG [facility] [address] Apr, Shoulder pain 719.41 and Physicians LAWRENCE JEONG212 Foreign body 959.9 [facility] [address] Apr, Contusion of shoulder, left Physicians LAWRENCE JEONG212 923.00 [facility] [address] Apr, Physicians LAWRENCE JEONG [address] [place] [address] [address] Mar, Physicians LAWRENCE JEONG212 [facility] [address] Mar, [facility] [address] [facility] [address] Mar, Physicians LAWRENCE JEONG [address] [place] [address] [address] Mar, Lumbar pain 724.2 Physicians LAWRENCE JEONG [address] [facility] [address] Mar, Physicians LAWRENCE JEONG [address] [facility] [address] Mar, Back pain 724.5 Physicians LAWRENCE JEONG [address] [place] [address] [address] February, Physicians LAWRENCE JEONG [address] [facility] [address] February, Physicians LAWRENCE JEONG [address] [place] [address] [address] Jan, Physicians LAWRENCE JEONG [address] [facility] [address] Dec, Physicians LAWRENCE JEONG [address] [facility] [address] Nov, Physicians LAWRENCE JEONG [address] [place] [address] [address] Oct, Bronchitis 490 ; RAD Physicians LAWRENCE JEONG (reactive airway disease) 493.90 and Serous otitis media 381.4 [facility] [address] Oct, Physicians LAWRENCE JEONG [address] [facility] [address] Oct, Physicians LAWRENCE JEONG [address] [facility] [address] Oct, Physicians LAWRENCE JEONG212 [facility] [address] Aug, Physicians LAWRENCE JEONG212 [facility] [address] Jul, Physicians LAWRENCE JEONG212 [facility] [address] Jun, Hyperlipidemia 272.4 Physicians LAWRENCE JEONG [facility] [address] 15 Jun, 2014 Physicians LAWRENCE JEONG [address] [facility] [address] Jun, Arthritis of knee 716.96 Physicians LAWRENCE JEONG and Hypertension 401.9 [facility] [address] May, Allergic dermatitis 692.9 Physicians LAWRENCE JEONG [facility] [address] February, Physicians LAWRENCE JEONG [facility] [address] Jan, Physicians LAWRENCE JEONG [facility] [address] Jan, Plantar fasciitis 728.71 Physicians LAWRENCE JEONG [facility] [address] Jan, Physicians LAWRENCE JEONG [facility] [address] Dec, Physicians LAWRENCE JEONG [facility] [address] Nov, Physicians LAWRENCE JEONG [facility] [address] Nov, Physicians LAWRENCE JEONG [facility] [address] Nov, Plantar fasciitis 728.71 Physicians LAWRENCE JEONG [facility] [address] Oct, Physicians LAWRENCE JEONG [facility] [address] Aug, Physicians LAWRENCE JEONG [facility] [address] Aug, Physicians LAWRENCE JEONG [facility] [address] Aug, Physicians LAWRENCE JEONG [facility] [address] Aug, Lumbosacral radiculopathy Physicians LAWRENCE JEONG due to degenerative joint disease of spine 722.52 [facility] [address] Apr, Physicians LAWRENCE JEONG [facility] [address] Mar, Physicians LAWRENCE JEONG [facility] [address] February, Lumbosacral radiculopathy Physicians LAWRENCE JEONG due to degenerative joint disease of spine 722.52 and Foot pain 729.5 [facility] [address] February, [place] [address] [facility] [address] February, Physicians LAWRENCE JEONG [address] [facility] [address] February, [place] [address] [facility] [address] February, [place] [address] [facility] [address] February, [place] [address] [facility] [address] February, Lumbosacral radiculopathy Physicians LAWRENCE JEONG [address] due to degenerative joint disease of spine 722.52 [facility] [address] Jan, [place] [address] [facility] [address] Jan, Physicians LAWRENCE JEONG [address] [facility] [address] Jan, [place] [address] [facility] [address] Jan, Physicians LAWRENCE JEONG [address] [facility] [address] Jan, Lumbosacral radiculopathy Physicians LAWRENCE JEONG [address] due to degenerative joint disease of spine 722.52 [facility] [address] Dec, Physicians LAWRENCE JEONG [address] [facility] [address] Dec, Physicians LAWRENCE JEONG [address] [facility] [address] Dec, Lumbosacral radiculopathy Physicians LAWRNECE JEONG [address] due to degenerative joint disease of spine 722.52 [facility] [address] Aug, Physicians LAWRENCE JEONG [address] [facility] [address] Jun, Physicians LAWRENCE JEONG [address] [facility] [address] February, Physicians LAWRENCE JEONG [address] [facility] [address] Jun, Physicians LAWRENCE JEONG212 [facility] [address] February, Physicians LAWRENCE JEONG [address] [facility] [address] Jan, Physicians LAWRENCE JEONG [address] [facility] [address] Aug, Physicians LAWRENCE JEONG [address] [facility] [address] Jun, Physicians LAWRENCE JEONG [address] IMMUNIZATIONS No Known Immunizations SOCIAL HISTORY Never Assessed REASON FOR VISIT Fax to [facility] VITAL SIGNS MEDICATIONS Unknown Medications RESULTS No Results PROCEDURES No Known procedures INSTRUCTIONS MEDICATIONS ADMINISTERED No Known Medications MEDICAL (GENERAL) HISTORY Type Description Date Surgical History knee surgery ARTHROSCOPY LEFT Surgical History rt arm surgery Surgical History KNEE SURG ON THE RT WHICH WAS AN OPEN SURG
--- OUTSIDE RECORDS SUMMARY | 2018-02-26 16:49 | External Medical Summary ---
:1965 Author Organization [facility] Address [address] [place] [address] Care Team Providers Name Role Phone Arnold Molina Unavailable Unavailable PROBLEMS Type Condition ICD9-CM Code [id number] Code Onset Condition SNOMED Code Dates Status Problem Lumbar pain 724.2 Active 607396974 Problem RAD (reactive 493.90 Active 835832151360 airway disease) Problem Foot pain 729.5 Active 07650260 Problem DDD M51.37 Active 83460467 (degenerative disc disease), lumbosacral ALLERGIES No Information SOCIAL HISTORY Never Assessed PLAN OF CARE VITAL SIGNS MEDICATIONS Medication Instructions Dosage Frequency Start End Date Duration Status Date [place] 7.5-325 Orally every 6 1 tablet 6h Jun, 30 days Active MG hrs as needed 2016 RESULTS No Results PROCEDURES No Known procedures IMMUNIZATIONS No Known Immunizations MEDICAL (GENERAL) HISTORY Type Description Date Surgical History knee surgery ARTHROSCOPY LEFT Surgical History rt arm surgery Surgical History KNEE SURG ON THE RT WHICH WAS AN OPEN SURG
--- OUTSIDE RECORDS SUMMARY | 2018-02-26 16:49 | External Medical Summary ---
:1965 Author Organization [employer] Care Team Providers Name Role Phone Chito Castillo Provider Role Unavailable Allergies, Adverse Reactions, Alerts Substance Reaction Event Type N.K.D.A. Info Not Available Non Drug Allergy Problems Problem Type Condition ICD-9 Code Onset Dates Condition Status Problem Foot pain 729.5 Active Problem Lumbosacral radiculopathy due to 722.52 Active degenerative joint disease of spine Problem RAD (reactive airway disease) 493.90 Active Assessment Serous otitis media 381.4 Active Assessment Bronchitis 490 Active Assessment RAD (reactive airway disease) 493.90 Active Medications Medication Code System Code Instructions Start End Date Status Dosage Date Augmentin [facility] [address] 875-125 MG Orally Nov 29, 1 tablet 6-12 Twice a day 2014 [place] [facility] [address] 7.5-325 MG Orally Oct 15, 1 tablet as 1-30 every 6 hrs 2013 [place] [address] 50 MG Orally Once Nov 29, as directed 9-20 a day 2014 [place] [address] 20 MG Orally Once Jul 16, 1 tablet in 4-10 a day 2014 the evening Procedures Procedure Coding System Code Date OFFICE VISITEST PT CPT-4 69679 Nov 29, 2014 Vital Signs Date/Time: Nov 29, 2014 Blood Pressure Systolic 122 mm Hg Height 68.5 in Weight 184.7 lbs BMI 27.67 Index Temperature 98.0 F Blood Pressure Diastolic 80 mm Hg Results No Known Results Summary Purpose [employer] Submission
--- OUTSIDE RECORDS SUMMARY | 2018-02-26 16:49 | External Medical Summary ---
:1965 Author Organization [facility] Address [address] [place] [address] Care Team Providers Name Role Phone Zafar Wilder Unavailable Unavailable PROBLEMS Type Condition ICD9-CM Code QNH94-FJ Code Onset Condition SNOMED Code Dates Status Problem DDD M51.37 Active 04745967 (degenerative disc disease), lumbosacral Problem Gastritis, K29.70 Active 0343023 presence of bleeding unspecified, unspecified chronicity, unspecified gastritis type Problem Hepatitis K75.9 Active 479709096 Problem RAD (reactive 493.90 Active [id number] airway disease) Problem Foot pain 729.5 Active 72005313 Problem Depression F32.9 Active 06540156 Problem Lumbar pain 724.2 Active [id number] ALLERGIES No Known Allergies ENCOUNTERS Encounter Location Date Diagnosis [address] Jan, Physicians [place] [facility] Jan, Phys[facility] [place] Jan, Physicians [place], [address] Jan, Physicians [place], [address] Jan, Physicians [place], [address] Jan, Low back pain M54.5 and Physicians [place]ARA [place], [place] [address] Depression [address] Jan, Physicians TARA [place], [address] Jan, Depression F32.9 ; Physicians [place]ARA [place], [place] [address] Gastritis, presence of bleeding unspecified, unspecified chronicity, unspecified gastritis type K29.70 ; DDD (degenerative disc disease), lumbosacral M51.37 and Degenerative arthritis of knee M17.10 [facility] [address] Dec, Nausea R11.0 ; Physicians LAWRENCE JEONG212 Non-intractable vomiting without nausea, unspecified vomiting type R11.11 and Gastritis, presence of bleeding unspecified, unspecified chronicity, unspecified gastritis type K29.70 [facility] [address] [facility] Dec, Low back pain M54.5 [facility] LAWRENCE JEONG[address] [place] [address] [place] [address] Nov, Hyperlipidemia, unspecified Physicians LAWRENCE JEONG E78.5 ; Hepatitis K75.9 and Low back pain M54.5 [facility] [address] [place] [address] Nov, Low back pain M54.5 [facility] LAWRENCE JEONG[address] [place] [address] [place] [address] Nov, Nausea R11.0 [facility] LAWRENCE JEONG212 [facility] [address] [place] [address] Nov, Other intervertebral disc Physicians LAWRENCE JEONG degeneration, lumbosacral region M51.37 [facility] [address] [facility] Oct, Depression F32.9 and DDD Phys[facility] LAWRENCE JEONG (degenerative disc disease), lumbosacral M51.37 [facility] [address] [place] [address] Oct, Depression F32.9 [facility] LAWRENCE JEONG212 [facility] [address] Sep, Physicians LAWRENCE JEONG [facility] [address] [place] [address] Sep, Other intervertebral disc Physicians LAWRENCE JEONG degeneration, lumbosacral region M51.37 and Other hyperlipidemia E78.4 [facility] [address] [facility] Sep, Physicians LAWRENCE JEONG [facility] [address] [place] [address] Aug, Physicians LAWRENCE JEONG [facility] [address] [place] [address] Jul, Physicians LAWRENCE JEONG [facility] [address] Jun, Physicians LAWRENCE JEONG [facility] [address] [place] [address] Jun, DDD (degenerative disc Physicians LAWRENCE JEONG disease), lumbosacral M51.37 [facility] [address] May, Physicians LAWRENCE JEONG [address] [facility] [address] May, DDD (degenerative disc Physicians LAWRENCE JEONG disease), lumbosacral M51.37 [facility] [address] Apr, Lumbosacral radiculopathy [facility] [place], [place] M54.17 [place] [address] vertebral joint at L5-S1 level of lumbosacral spine S33.101A [facility] [address] Apr, Other intervertebral disc Physicians LAWRENCE JEONG212 degeneration, lumbosacral region M51.37 ; COPD (chronic obstructive pulmonary disease) J44.9 ; Osteoarthritis of both knees M17.0 ; Hyperlipidemia, unspecified E78.5 and Family hx of colon cancer Z80.0 [facility] [address] Apr, DDD (degenerative disc Physicians LAWRENCE JEONG212 disease), lumbosacral M51.37 [facility] [address] Mar, DDD (degenerative disc Physicians LAWRENCE JEONG disease), lumbosacral M51.37 [facility] [address] Mar, Physicians LAWRENCE JEONG [facility] [address] February, Physicians LAWRENCE JEONG212 [facility] [address] Nov, Physicians LAWRENCE JEONG [facility] [address] Oct, Physicians LAWRENCE JEONG [facility] [address] Sep, Physicians LAWRENCE JEONG [facility] [address] Sep, Physicians LAWRENCE JEONG [facility] [address] Aug, Physicians LAWRENCE JEONG [facility] [address] Jul, Physicians LAWRENCE JEOGN [facility] [address] Jun, Physicians LAWRENCE JEONG [facility] [address] Jun, Physicians LAWRENCE JEONG [address] [facility] [address] May, Physicians LAWRENCE JEONG [address] [facility] [address] May, Physicians LAWRENCE JEONG [address] [facility] [address] Apr, Physicians LAWRENCE JEONG [address] [facility] [address] Mar, Physicians LAWRENCE JEONG [address] [facility] [address] Mar, Physicians LAWRENCE JEONG [address] [facility] [address] Mar, Physicians LAWRENCE JEONG [address] [facility] [address] February, Physicians LAWRENCE JEONG [address] [facility] [address] Jan, Other hyperlipidemia E78.4 Phys[facility] LAWRENCE JEONG [address] [facility] [address] Jan, Physicians LAWRENCE JEONG [address] [facility] [address] Jan, Other intervertebral disc Physicians LAWRENCE JEONG [address] degeneration, lumbar region M51.36 ; Other hyperlipidemia E78.4 ; COPD (chronic obstructive pulmonary disease) J44.9 ; Osteoarthritis of both knees M17.0 and High risk for colon cancer Z91.89 [facility] [address] Jan, Physicians LAWRENCE JEONG [address] [facility] [address] Dec, Physicians LAWRENCE JEONG [address] [facility] [address] Nov, Physicians LAWRENCE JEONG [address] [facility] [address] Oct, Physicians LAWRENCE JEONG [address] [facility] [address] Sep, Physicians LAWRENCE JEONG [address]46[address] [facility] [address] Aug, Physicians LAWRENCE JEONG212 [facility] [address] Jul, Physicians LAWRENCE JEONG [address] [facility] [address] Jun, Physicians LAWRENCE JEONG 114[address] [facility] [address] May, Physicians [place], [place] [address] [place] [address] [address] May, Physicians LAWRENCE JEONG [address] [place] [address] [address] May, Shoulder pain 719.41 Phys[facility] LAWRENCE JEONG [address] [place] [address] [address] Apr, Physicians LAWRENCE JEONG [address] [place] [address] [address] Apr, Physicians LAWRENCE JEONG [address] [place] [address] [address] Apr, Shoulder pain 719.41 and Physicians LAWRENCE JEONG212 Foreign body 959.9 [facility] [address] Apr, Contusion of shoulder, left Physicians LAWRENCE JEONG [facility] 923.00 [facility] [address] Apr, Physicians LAWRENCE JEONG [address] [place] [address] [address] Mar, Physicians LAWRENCE JEONG [address] [place] [address] Surgery [address] Mar, [place] LAWRENCE JACKSON [address] [facility] [address] Mar, Physicians LAWRENCE JEONG [address] [place] [address] [address] Mar, Lumbar pain 724.2 Phys[facility] LAWRENCE JEONG [address] [place] [address] [address] Mar, Physicians LAWRENCE JEONG [address] [place] [address] [address] Mar, Back pain 724.5 Phys[facility] LAWRENCE JEONG [address] [place] [address] [address] February, Physicians LAWRENCE JEONG [address] [place] [address] [address] February, Physicians LAWRENCE JEONG [address] [place] [address] [address] Jan, Physicians LAWRENCE JEONG [address] [facility] [address] Dec, Physicians LAWRENCE JEONG [address] [facility] [address] Nov, Physicians LAWRENCE JEONG [address] [facility] [address] Oct, Bronchitis 490 ; RAD Physicians LAWRENCE JEONG (reactive airway disease) 493.90 and Serous otitis media 381.4 [facility] [address] Oct, Physicians LAWRENCE JEONG212 [facility] [address] Oct, Physicians LAWRENCE JEONG[address] [place] [address] [address] Oct, Physicians LAWRENCE JEONG [facility] [address] Aug, Physicians LAWRENCE JEONG212 [facility] [address] Jul, Physicians LAWRENCE JEONG212 [facility] [address] Jun, Hyperlipidemia 272.4 Physicians LAWRENCE JEONG212 [facility] [address] Jun, Physicians LAWRENCE JEONG212 [facility] [address] Jun, Arthritis of knee 716.96 Phys[facility] LAWRENCE JEONG212 and Hypertension 401.9 [facility] [address] May, Allergic dermatitis 692.9 Physicians LAWRENCE JEONG212 [facility] [address] February, Physicians LAWRENCE JEONG212 [facility] [address] Jan, Physicians LAWRENCE JEONG212 [facility] [address] Jan, Plantar fasciitis 728.71 Physicians LAWRENCE JEONG212 [facility] [address] Jan, Physicians LAWRENCE JEONG212 [facility] [address] Dec, Physicians LAWRENCE JEONG212 [facility] [address] Nov, Physicians LAWRENCE JEONG [facility] [address] Nov, Physicians LAWRENCE JEONG212 [facility] [address] Nov, Plantar fasciitis 728.71 Physicians LAWRENCE JEONG [facility] [address] Oct, Physicians LAWRENCE JEONG [facility] [address] Aug, Physicians LAWRENCE JEONG [facility] [address] Aug, Physicians LAWRENCE JEONG2 [facility] [address] Aug, Physicians LAWRENCE JEONG [address] [facility] [address] Aug, Lumbosacral radiculopathy Physicians LAWRENCE JEONG [address] due to degenerative joint disease of spine 722.52 [facility] [address] Apr, Physicians LAWRENCE JEONG [address] [facility] [address] Mar, Physicians LAWRENCE JEONG [address] [facility] [address] February, Lumbosacral radiculopathy Physicians LAWRENCE JEONG [address] due to degenerative joint disease of spine 722.52 and Foot pain 729.5 [facility] [address] February, [place] LAWRENCE JACKSON [address] [facility] [address] February, Physicians LAWRENCE JEONG [address] [facility] [address] February, [facility] [address] [facility] [address] February, [place] LAWRENCE JACKSON [address] [facility] [address] February, [facility] [address] [facility] [address] February, Lumbosacral radiculopathy Physicians LAWRENCE JEONG [address] due to degenerative joint disease of spine 722.52 [facility] [address] Jan, [place] LAWRENCE JACKSON [address] [facility] [address] Jan, Physicians LAWRENCE JEONG [address] [facility] [address] Jan, [place] LAWRENCE JACKSON [address] [facility] [address] Jan, Physicians LAWRENCE JEONG [address] [facility] [address] Jan, Lumbosacral radiculopathy Physicians LAWRENCE JEONG [address] due to degenerative joint disease of spine 722.52 [facility] [address] Dec, Physicians LAWRENCE JEONG [address] [facility] [address] Dec, Physicians LAWRENCE JEONG [address] [facility] [address] Dec, Lumbosacral radiculopathy Physicians LAWRENCE JEONG [address] due to degenerative joint disease of spine 722.52 [facility] [address] Aug, Physicians LAWRENCE JEONG [address] [facility] [address] Jun, Physicians LARWENCE JEONG212 [facility] [address] February, Physicians LAWRENCE JEONG212 [facility] [address] Jun, Physicians LAWRENCE JEONG [address] [facility] [address] February, Physicians LAWRENCE JEONG [address] [facility] [address] Jan, Physicians LAWRENCE JEONG [address] [facility] [address] Aug, Physicians LAWRENCE JEONG [address] [facility] [address] Jun, Physicians LAWRENCE JENOG [address] IMMUNIZATIONS No Known Immunizations SOCIAL HISTORY Never Assessed REASON FOR VISIT fmla paperwork PLAN OF CARE Activity Details Follow Up prn Reason: VITAL SIGNS Weight 168.6 lbs 2018-01-30 Height 68.5 in 2018-01-30 BMI 25.26 kg/m2 2018-01-30 Blood pressure systolic 152 mm Hg 2018-01-30 Blood pressure diastolic 72 mm Hg 2018-01-30 MEDICATIONS Medication Instructions Dosage Frequency Start End Duration Status Date Doxepin HCl 10 Orally q PM 1 capsule 30 day(s) Active MG at bedtime Lipitor 20 mg Orally Once a 1 tablet 24h May, day(s) Active day 2016 Zofran 4 mg Orally 1 EVERY as directed Dec, as Active 8 HRS 2018 needed [place] 5-325 MG Orally every 6 1 tablet as 6h 30 days Active hrs needed Citalopram Orally Once a 1 tablet [...]
--- OUTSIDE RECORDS SUMMARY | 2018-02-26 16:49 | External Medical Summary ---
[...] Date End Date Status Dosage MS Contin [facility] [address] 15 MG Orally April 01 tablet -00 Every 8 hours 2014 Results No Known Results Summary Purpose eClinicalWorks Submission
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
[2018-02-26 18:30] VITALS: BMI 27.3
[2018-02-26] MEDS: 1/2 NS 1,000 ML IV SCH (19:55)
[2018-02-27] MEDS: 1/2 NS 1,000 ML IV SCH (06:23)
[2018-02-27] MEDS ORDERED: FOLIC ACID 1 MG TABLET PO SCH (09:00)
[2018-02-27] MEDS ORDERED: MULTI-VITAMIN + MINERAL TABLET PO SCH (09:00)
[2018-02-27] MEDS ORDERED: ACETAMINOPHEN 325 MG TABLET PO PRN (11:12)
[2018-02-27 12:01] VITALS: RESP 15; TEMP 98.7
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
[2018-02-27 15:42] VITALS: BP 154/70; PULSE 81; O2SAT 95
== END 2018-02-27 18:45 ==
LOC: CCU 16:00 → ED 16:00 → CCU 18:15 → MED 02-27 15:28
PROVIDERS: ADMIT Internal Medicine; ATTEND Internal Medicine